=== PATIENT | female | born 1930 | race Caucasian/White ===

== ENCOUNTER 2016-10-10 15:39 | Inpatient (IN) | payer MEDICAID ==
[~2016-10-10] VITALS: Ht 157.5 cm; Wt 61.5 kg
[2016-10-10] MEDS ORDERED: ONDANSETRON 4 MG INJ IV STA (16:05)
[2016-10-10] MEDS ORDERED: KETOROLAC 15 MG INJ IV STA (16:05)
[2016-10-10] MEDS ORDERED: SOD CHLORIDE 0.9% 1,000 ML IV STA (16:05)
[2016-10-10] MEDS ORDERED: GLIP-95 PO (16:32)
[2016-10-10] MEDS ORDERED: METO-448 PO (16:32)
[2016-10-10] MEDS ORDERED: SIMV40TA2 PO (16:33)
[2016-10-10] MEDS ORDERED: BENA40TA41 PO (16:33)
[2016-10-10 16:47] LABS: ADD SCAN DIFF NO
[2016-10-10 16:56] LABS: BASOPHILS % 0.2 % (0.0-2.0); EOSINOPHILS % 0.1 % (0.0-7.0); HEMATOCRIT 39.7 % (37.0-47.0); HEMOGLOBIN 13.1 g/dl (12.0-16.0); LYMPHOCYTES # 1.8 10^3/ul (0.8-2.9); MEAN CORPUSCULAR HEMOGLOBIN 28.7 pg (29.0-33.0); MEAN CORPUSCULAR VOLUME 87.1 fl (82.0-101.0); MONOCYTE # 0.7 10^3/ul (0.3-0.9); MONOCYTES % 8.7 % (0.0-11.0); NEUTROPHIL # 5.8 10^3/ul (1.6-7.5); NEUTROPHILS % 69.8 % (39.0-77.0); PLATELET COUNT 184 10^3/UL (140-415); RED BLOOD COUNT 4.56 10^6/ul (4.20-5.40); RED CELL DISTRIBUTION WIDTH 14.6 % (11.5-14.5); WHITE BLOOD COUNT 8.3 10^3/ul (4.8-10.8)
[2016-10-10 17:09] LABS: INR 0.96; PROTIME 12.8 Sec (12.2-14.2)
--- NOTE | 2016-10-10 17:33 | RADRPT ---
PROCEDURE: XR Chest. CLINICAL INDICATION: Chest pain TECHNIQUE: AP view of the chest was performed. COMPARISON: None FINDINGS: The cardiomediastinal silhouette is within normal limits. The lungs are clear. No signs of pleural f luid or pneumothorax are seen. The osseous structures and soft tissues are unremarkable. IMPRESSION: No evidence for active cardiopulmonary disease. RPTAT: QQ .Shasta Cruz MD, MD Date Time Electronically viewed and signed by .Shasta Cruz MD, on 10/10/2016 17:33 .F/
[2016-10-10 17:50] LABS: ALANINE AMINOTRANSFERASE 20 IU/L (13-69); ALBUMIN 4.3 g/dl (3.3-4.9); ALBUMIN/GLOBULIN RATIO 1.22; ALKALINE PHOSPHATASE 64 IU/L (42-121); ANION GAP 21 (8-16); ASPARTATE AMINO TRANSFERASE 32 IU/L (15-46); BILIRUBIN,INDIRECT 0.2 mg/dl (0-1.1); BILIRUBIN,TOTAL 0.2 mg/dl (0.2-1.3); BLOOD UREA NITROGEN 34 mg/dl (7-20); CALCIUM 8.8 mg/dl (8.4-10.2); CARBON DIOXIDE 24 mmol/L (21-31); CHLORIDE 105 mmol/L (97-110); CREATININE 2.67 mg/dl (0.44-1.00); POTASSIUM 3.5 mmol/L (3.5-5.1); SODIUM 146 mmol/L (135-144); TOTAL PROTEIN 7.8 g/dl (6.1-8.1)
[2016-10-10 17:54] LABS: GLUCOSE 49 mg/dl (70-220)
[2016-10-10 18:08] LABS: TROPONIN-I < 0.012 ng/ml (0.00-0.12)
[2016-10-10] MEDS ORDERED: DEXTROSE 50% 50 ML SYRINGE IV STA (18:17)
--- NOTE | 2016-10-10 18:36 | ERA ---
ER Documentation Chief Complaint Date/Time DATE: 10/10/16 TIME: 18:33 Chief Complaint AP WITH DIARRHEA SINCE TUESDAY HPI 85-year-old woman brought in by family members for 2-3 episodes of diarrhea for the last 3-4 days, her symptoms also began with vomiting which has improved. She has had no blood per rectum, no chest pain or shortness of breath, no loss of consciousness, no recent antibiotic use or recent travel. She has felt weak and dizzy. ROS All systems reviewed and are negative except as per history of present illness. Medications Home Meds Reported Medications Simvastatin* (Zocor*) 40 Mg Tablet, 40 MG PO QHS, #30 TAB 10/10/16 Benazepril Hcl* (Benazepril Hcl*) 40 Mg Tablet, 40 MG PO DAILY, #30 TAB 10/10/16 Metoprolol Tartrate* (Lopressor*) 25 Mg Tab, 25 MG PO DAILY, #60 TAB 10/10/16 Glipizide* (Glipizide*) 10 Mg Tablet, 10 MG PO AC BREAKFAST, TAB 10/10/16 Allergies Allergies: Coded Allergies: No Known Allergy (Unverified , 10/10/16) PMhx/Soc Mild dementia, hypertension, diabetes mellitus, dyslipidemia History of Surgery: Yes (gallbladder) Hx Cardiac Disorders: Yes (htn, high cholestrol ) Hx Miscellaneous Medical Probl: Yes (dm, thyroid do ) Hx Alcohol Use: No Hx Substance Use: No Hx Tobacco Use: No Smoking Status: Never smoker FmHx Family History: No diabetes Physical Exam Vitals Vital Signs Date Time Temp Pulse Resp B/P Pulse Ox O2 Delivery O2 Flow Rate FiO2 10/10/16 18:07 65 23 134/45 98 Room Air 10/10/16 15:42 98.9 91 18 118/55 99 Physical Exam GENERAL: Well-developed, well-nourished, dehydrated elderly woman, afebrile HEENT: Dry mucous membranes, pink conjunctiva, no cervical spine tenderness or step-off deformities, no goiter, no jaundice or icterus, extraocular movements intact without pain. No submandibular induration, and no pharyngeal erythema NEURO: Alert and oriented 2, able to answer simple questions and follow simple commands, no focal deficits or facial asymmetry, eyes open CARDIAC: Regular rate and rhythm, no murmurs rubs or gallops LUNGS: Clear bilaterally no wheezing crackles or stridor ABDOMEN: Protuberant mildly distended abdomen without guarding and no rigidity, minimally tender diffusely, no rebound, no psoas sign no obturator sign. SKIN: Warm and dry to touch, no abrasions, contusions, or hematomas, no lacerations, no ecchymosis, no target lesions, and without ulcers EXTREMITIES: No clubbing cyanosis or edema, calves are bilaterally symmetrical, no Homans sign, no popliteal cord sign. Distal pulses equal and bilateral PSYCH: Normal affect without agitation or irritability Result Diagram: 10/10/16 1630 10/10/16 1718 Results 24 hrs Laboratory Tests Test 10/10/16 16:30 10/10/16 17:18 10/10/16 17:58 10/10/16 18:15 White Blood Count 8.310^3/ul Red Blood Count 4.5610^6/ul Hemoglobin 13.1g/dl Hematocrit 39.7% Mean Corpuscular Volume 87.1fl Mean Corpuscular Hemoglobin 28.7pg Mean Corpuscular Hemoglobin Concent 33.0g/dl Red Cell Distribution Width 14.6% Platelet Count 86626^3/UL Mean Platelet Volume 11.0fl Neutrophils % 69.8% Lymphocytes % 21.0% Monocytes % 8.7% Eosinophils % 0.1% Basophils % 0.2% Nucleated Red Blood Cells % 0.0/100WBC Neutrophils # 5.810^3/ul Lymphocytes # 1.810^3/ul Monocytes # 0.710^3/ul Eosinophils # 0.010^3/ul Basophils # 0.010^3/ul Nucleated Red Blood Cells # 0.010^3/ul Prothrombin Time 12.8Sec Prothrombin Time Ratio 1.0 INR International Normalized Ratio 0.96 Sodium Level 146mmol/L Potassium Level 3.5mmol/L Chloride Level 105mmol/L Carbon Dioxide Level 24mmol/L Anion Gap 21 Blood Urea Nitrogen 34mg/dl Creatinine 2.67mg/dl Glucose Level 49mg/dl Calcium Level 8.8mg/dl Total Bilirubin 0.2mg/dl Direct Bilirubin 0.00mg/dl Indirect Bilirubin 0.2mg/dl Aspartate Amino Transf (AST/SGOT) 32IU/L Alanine Aminotransferase (ALT/SGPT) 20IU/L Alkaline Phosphatase 64IU/L Troponin I < 0.012ng/ml Total Protein 7.8g/dl Albumin 4.3g/dl Globulin 3.50g/dl Albumin/Globulin Ratio 1.22 Lipase 109U/L Bedside Glucose 47mg/dL 44mg/dL Current Medications Medications (Trade) Dose Ordered Sig/Kerri Route PRN Reason Start Time Stop Time Status Last Admin Dose Admin Sodium Chloride (NS) 1,000 ml @ 1,000 mls/hr Q1H STAT IV 10/10/16 16:05 10/10/16 22:15 DC 10/10/16 16:05 Ondansetron HCl (Zofran Inj) 4 mg ONCE STAT IV 10/10/16 16:05 10/10/16 16:07 DC 10/10/16 16:05 Ketorolac Tromethamine (Toradol) 15 mg ONCE STAT IV 10/10/16 16:05 10/10/16 16:07 DC 10/10/16 16:05 Dextrose (D50w Syringe) 50 ml ONCE STAT IV 10/10/16 18:17 10/10/16 18:20 DC 10/10/16 18:22 Procedures/MDM IV line was established patient was placed on soil fertility extension specialist rhythm strip revealed a sinus rhythm at about 80 bpm with upright P and T waves. Patient was afebrile. EKG performed, read by me: 82 bpm, normal sinus rhythm, normal axis, no acute ST segment changes, narrow QRS complex, with good R-wave progression in precordial leads. Chest X-ray 1V Interpreted by me: Soft Tissue: No acute abnormalities Bones: No acute abnormalities Mediastinum/Cardiac Silhouette/Lungs: No acute abnormalities CT scan of the abdomen and pelvis was performed that was mild acute colitis noted, no other infectious or inflammatory pathology noted. Please refer to radiologist dictation for full report. I administered 2 L normal saline intravenously for dehydration, Toradol 15 mg IV for pain, Zofran 4 mg IV. Patient was found to be hypoglycemic here in the emergency department show we administered juice and dextrose 25 g IV. CBC was unremarkable, electrolytes revealed dehydration and kidney injury with a BUN/creatinine of 34/2.7, liver function tests were normal, troponin was negative. Patient will be admitted to [facility] for continued IV hydration. Departure Diagnosis: Primary Impression: Dehydration Additional Impressions: Diarrhea Qualified Code: A09 - Diarrhea of infectious origin Abdominal pain Qualified Code: R10.84 - Generalized abdominal pain Acute kidney injury Hypoglycemia Condition: Fair LON ABDULLAHI MD Oct 10, 2016 18:36
--- NOTE | 2016-10-10 18:36 | RADRPT ---
PROCEDURE: CT abdomen and pelvis without contrast. CLINICAL INDICATION: Abdominal pain and diarrhea for 2 days TECHNIQUE: CT scan of the abdomen and pelvis without contrast was performed. Sagittal and coronal reformatted images were obtained from the axial source images. CTDI = 10.86 mGy; DLP = 584.95 mGy-c m COMPARISON: None available. FINDINGS: Visualized lower thorax: The lung bases are clear. There is no evidence for pleural effusion. Prom inent pericardial fat deposition is incidentally noted Liver, gallbladder, pancreas and spleen: The liver is normal and size, contour and attenuation. Th ere is no evidence for a liver mass or ductal dilatation. Cholecystectomy clips are present. No co mmon bile duct abnormality is demonstrated. The pancreas is unremarkable. The spleen is normal in size. Adrenal glands and genitourinary system: The adrenal glands are normal bilaterally. Bilateral renal cortex thinning is present likely medical renal disease with bilateral renal atrophy the length of each kidney approximately 8 cm. There is no evidence of renal calculus or hydronephrosis. The uret ers are unremarkable. The urinary bladder is contracted and difficult to evaluate. Uterine atrophy is noted with vascular calcifications in the myometrium. No ovarian or adnexal masses are present. Gastrointestinal system: A small sliding hiatal hernia is noted the remainder of the stomach is flu id-filled and without wall thickening. The small bowel is normal in caliber with no ileus, obstruct ion or wall thickening. The appendix and surrounding fat are within the limits of normal. Liquid s tool is seen throughout the majority of the colon. The colonic wall is top normal in thickness equi vocal for colitis without stranding of the pericolonic fat. There is no pneumatosis or extraluminal gas. Peritoneum, retroperitoneum, lymph nodes and vessels: The abdominal aorta is normal in caliber. The re is moderate to severe aortic and iliac system atherosclerotic calcification. The inferior vena c radha is unremarkable. There is no evidence for adenopathy or mass. There is no ascites. No pneumope ritoneum is present Osseous structures and musculoskeletal findings: There is no fracture, lytic or blastic lesion. Ge neralized demineralization and moderate spondylosis of the thoracolumbar spine is seen. No muscular abnormality or soft tissue pathology is present. RPTAT:HJJR IMPRESSION: 1. Liquid stool is visualized throughout and normal caliber colon with top normal colonic wall thick ness equivocal for mild diffuse colitis likely related to infectious or inflammatory etiologies, no stranding of the adjacent pericolonic fat is present. 2. Small sliding hiatal hernia. 3. Changes of prior cholecystectomy. 4. Bilateral renal cortex thinning and mild renal atrophy likely medical renal disease. 5. Diffuse atherosclerotic calcification of the aorta and iliac system. Imtiaz Vásquez Physician Date Time Electronically viewed and signed by Imtiaz Vásquez Physician on 10/10/2016 18:36 JR/
[2016-10-10 20:43] VITALS: TEMP 98.2
[2016-10-10 21:45] VITALS: BP 150/65; PULSE 80; RESP 17; Ht 157.5 cm; Wt 61.5 kg
[2016-10-10] MEDS ORDERED: SOD CHLORIDE 0.9% 1,000 ML IV SCH (22:00)
[2016-10-10] MEDS: DEXTROSE 5%-0.9% NACL 1,000 ML IV SCH (22:26)
[2016-10-10] MEDS ORDERED: DEXTROSE 50% 50 ML SYRINGE IV ONE (22:30)
[2016-10-10] MEDS ORDERED: BISACODYL (EC) 5 MG TAB PO PRN (22:30)
[2016-10-10] MEDS ORDERED: NACL 0.9% 3 ML SYG IV SCH (22:30)
[2016-10-10] MEDS ORDERED: ACETAMINOPHEN 325 MG TAB PO PRN (22:30)
[2016-10-10] MEDS ORDERED: DOCUSATE SODIUM 100 MG CAP PO PRN (22:30)
[2016-10-10] MEDS ORDERED: FAMOTIDINE 20 MG INJ IV SCH (22:30)
[2016-10-10] MEDS ORDERED: ONDANSETRON 4 MG INJ IV PRN (22:30)
[2016-10-10] MEDS ORDERED: DEXTROSE 50% 50 ML SYRINGE IV PRN ×2 (23:00)
[2016-10-10] MEDS ORDERED: GLUCAGON 1 MG INJ IM PRN (23:00)
[2016-10-10] MEDS ORDERED: GLUCOSE GEL 15 GRAM TUBE PO PRN ×2 (23:00)
[2016-10-10] MEDS ORDERED: GLUCOSE GEL 15 GRAM TUBE BUCCAL PRN (23:00)
[2016-10-11] MEDS: INSULIN ASPART [NOVOLOG] 3 ML PEN SC SCH ×3 (01:00→09:00)
[2016-10-11 02:00] VITALS: BP 132/55; PULSE 63; RESP 20
[2016-10-11] MEDS ORDERED: ACCU-CHEK XX SCH ×2 (02:00→02:30)
[2016-10-11 05:05] LABS: ADD SCAN DIFF NO
[2016-10-11 05:12] LABS: BASOPHILS % 0.3 % (0.0-2.0); EOSINOPHILS # 0.1 10^3/ul (0.0-0.5); HEMOGLOBIN 11.3 g/dl (12.0-16.0); LYMPHOCYTES # 1.9 10^3/ul (0.8-2.9); LYMPHOCYTES % 32.1 % (15.0-51.0); MEAN CORPUSCULAR HEMOGLOBIN 27.9 pg (29.0-33.0); MEAN CORPUSCULAR HGB CONC 31.4 g/dl (32.0-37.0); MEAN CORPUSCULAR VOLUME 88.9 fl (82.0-101.0); MEAN PLATELET VOLUME 10.8 fl (7.4-10.4); MONOCYTE # 0.6 10^3/ul (0.3-0.9); MONOCYTES % 9.7 % (0.0-11.0); NEUTROPHIL # 3.3 10^3/ul (1.6-7.5); NEUTROPHILS % 56.7 % (39.0-77.0); PLATELET COUNT 149 10^3/UL (140-415); RED BLOOD COUNT 4.05 10^6/ul (4.20-5.40); RED CELL DISTRIBUTION WIDTH 14.4 % (11.5-14.5); WHITE BLOOD COUNT 5.9 10^3/ul (4.8-10.8)
[2016-10-11 05:38] LABS: ALBUMIN 3.3 g/dl (3.3-4.9); ALBUMIN/GLOBULIN RATIO 1.13; BILIRUBIN,INDIRECT 0.1 mg/dl (0-1.1); BILIRUBIN,TOTAL 0.1 mg/dl (0.2-1.3); CALCIUM 7.5 mg/dl (8.4-10.2); CREATININE 1.99 mg/dl (0.44-1.00); MAGNESIUM 1.8 mg/dl (1.7-2.5); POTASSIUM 3.2 mmol/L (3.5-5.1); TOTAL PROTEIN 6.2 g/dl (6.1-8.1)
--- NOTE | 2016-10-11 05:41 | HP ---
Date/Time of Note Date/Time of Note DATE: 10/11/16 TIME: 05:33 Assessment/Plan VTE Prophylaxis VTE Prophylaxis Intervention: SCD's Lines/Catheters IV Catheter Type (from [facility]): Peripheral IV Assessment/Plan Chief Complaint/Hosp Course This is a 85-year-old female being admitted to the [facility] floor for: Assessments: #1 Suspected acute gastroenteritis #2 suspected acute on chronic kidney injury #3 hypoglycemia #4 diabetes mellitus #5 hypertension #6 possible thyroid disorder Plan: At this time this possibly appears to be gastroenteritis secondary to likely a foodborne illness. At the current time patient is afebrile and white blood cell count remains within normal values. Will give the patient IV fluid hydration. We will check stool studies. Patient also is dealing with hypoglycemia. At the current time will put patient on IV fluids with dextrose for hydration. Will consult nephrology regarding patient's elevated creatinine. There is no previous history of her creatinine on her hospital records. Will order bilateral renal ultrasound. And will order urine osmolality osmolality and osmolality and urine sodium. Will hold MARGAUX inhibitor at this time. And will hold diabetes medications. Will put patient on insulin sliding scale. Check TSH. Further treatment strategy will be implemented as per the clinical course Problems: HPI/ROS Admit Date/Time Admit Date/Time Oct 10, 2016 at 18:33 Hx of Present Illness Chief complaint: Diarrhea 3-4 days This is a 85-year-old woman brought in by family members for 2-3 episodes of diarrhea for the last 3-4 days, her symptoms also began with vomiting which has improved. She has had no blood per rectum, no chest pain or shortness of breath , no loss of consciousness, no recent antibiotic use or recent travel. She has felt weak and dizzy. She does state that a few days ago her relative brought tacos from an outside restaurant and she did state that he did not taste right to her. Allergies: NKDA Medications: See JUN CRISTÓBAL Const: As per HPI Eyes : No pain discharge or redness or change in visual acuity ENT: No pain, sore throat, congestion, congestion, dysphagia or discharge Respiratory: No shortness of breath, cough, sputum, wheezing, or pleuritic pain Cardiovascular: No chest pain, palpitation, PND, or edema GI : As per Genitourinary: No dysuria, hematuria, flank pain , discharge or CVA tenderness Musculoskeletal: No joint pain, back pain, neck pain, restricted range of motion in neck or joints Skin: No rash, bruising or hives Neuro: No headache, dizziness, syncope, seizure, focal weakness Endocrine: No polyuria, polydipsia, temperature intolerance Psych: No hallucination, depression, anxiety or suicidal ideation PMH/Family/Social Past Medical History Mild dementia, hypertension, diabetes mellitus, dyslipidemia, questionable thyroid disorder Past Surgical History Past Surgical Hx: no surgical history Family History Significant Family History: no pertinent family hx Social History Alcohol Use: none Smoking Status: Never smoker Drug Use: none Exam/Review of Systems Vital Signs Vitals Vital Signs Date Time Temp Pulse Resp B/P Pulse Ox O2 Delivery O2 Flow Rate FiO2 10/11/16 02:00 98.3 63 20 132/55 100 Room Air Intake and Output 10/10/16 10/10/16 10/11/16 15:00 23:00 07:00 Intake Total 767.5 ml Balance 767.5 ml Exam Exam General: Patient is a pleasant 85-year-old female laying in bed in no acute distress HEENT: Atraumatic, normocephalic. The pupils are equal, round and reactive. Extraocular motor are intact Neck: Supple with full range of motion. No rigidity or meningismus Chest: Nontender Lungs: Clear to auscultation bilaterally no crackles rales or wheezing Heart: Normal S1-S2, Regular rhythm and rate. No murmur, S3, or S4 Abdomen: Soft, mild tenderness to palpation of the lower abdomen, nondistended normal bowel sounds Extremities: Normal to inspection, no edema no cyanosis Neurologic: Normal mental status, speech normal, cranial nerves II through XII are intact, motor and sensory are intact, no focal weakness Additional Comments PROCEDURE: CT abdomen and pelvis without contrast. CLINICAL INDICATION: Abdominal pain and diarrhea for 2 days TECHNIQUE: CT scan of the abdomen and pelvis without contrast was performed. Sagittal and coronal reformatted images were obtained from the axial source images. CTDI = 10.86 mGy; DLP = 584.95 mGy-cm COMPARISON: None available. FINDINGS: Visualized lower thorax: The lung bases are clear. There is no evidence for pleural effusion. Prominent pericardial fat deposition is incidentally noted Liver, gallbladder, pancreas and spleen: The liver is normal and size, contour and attenuation. There is no evidence for a liver mass or ductal dilatation. Cholecystectomy clips are present. No common bile duct abnormality is demonstrated. The pancreas is unremarkable. The spleen is normal in size. Adrenal glands and genitourinary system: The adrenal glands are normal bilaterally. Bilateral renal cortex thinning is present likely medical renal disease with bilateral renal atrophy the length of each kidney approximately 8 cm. There is no evidence of renal calculus or hydronephrosis. The ureters are unremarkable. The urinary bladder is contracted and difficult to evaluate. Uterine atrophy is noted with vascular calcifications in the myometrium. No ovarian or adnexal masses are present. Gastrointestinal system: A small sliding hiatal hernia is noted the remainder of the stomach is fluid-filled and without wall thickening. The small bowel is normal in caliber with no ileus, obstruction or wall thickening. The appendix and surrounding fat are within the limits of normal. Liquid stool is seen throughout the majority of the colon. The colonic wall is top normal in thickness equivocal for colitis without stranding of the pericolonic fat. There is no pneumatosis or extraluminal gas. Peritoneum, retroperitoneum, lymph nodes and vessels: The abdominal aorta is normal in caliber. There is moderate to severe aortic and iliac system atherosclerotic calcification. The inferior vena cava is unremarkable. There is no evidence for adenopathy or mass. There is no ascites. No pneumoperitoneum is present Osseous structures and musculoskeletal findings: There is no fracture, lytic or blastic lesion. Generalized demineralization and moderate spondylosis of the thoracolumbar spine is seen. No muscular abnormality or soft tissue pathology is present. RPTAT:HJJR IMPRESSION: 1. Liquid stool is visualized throughout and normal caliber colon with top normal colonic wall thickness equivocal for mild diffuse colitis likely related to infectious or inflammatory etiologies, no stranding of the adjacent pericolonic fat is present. 2. Small sliding hiatal hernia. 3. Changes of prior cholecystectomy. 4. Bilateral renal cortex thinning and mild renal atrophy likely medical renal disease. 5. Diffuse atherosclerotic calcification of the aorta and iliac system. Physician Aislinn Date Time Electronically viewed and signed by Physician Aislinn on 10/10/2016 18:36 PROCEDURE: XR Chest. CLINICAL INDICATION: Chest pain TECHNIQUE: AP view of the chest was performed. COMPARISON: None FINDINGS: The cardiomediastinal silhouette is within normal limits. The lungs are clear. No signs of pleural fluid or pneumothorax are seen. The osseous structures and soft tissues are unremarkable. IMPRESSION: No evidence for active cardiopulmonary disease. RPTAT: QQ .Shasta Cruz MD, MD Date Time Electronically viewed and signed by .Shasta Cruz MD, on 10/10/2016 17:33 Labs Result Diagram: 10/11/16 0425 10/10/16 1718 Medications Medications Current Medications Dextrose/Sodium Chloride (D5-NS) 1,000 ml @ 75 mls/hr [id number] IV Last administered on 10/10/16 22:26; Admin Dose 75 MLS/HR; Start 10/10/16 at 22:30 Ondansetron HCl (Zofran Inj) 4 mg Q6H PRN IV NAUSEA AND/OR VOMITING; Start 10/10 at 22:30 Acetaminophen (Tylenol Tab) 650 mg Q6H PRN PO PAIN LEVEL 1-3 OR FEVER; Start at 22:30 Docusate Sodium (Colace) 100 mg Q12H PRN PO CONSTIPATION; Start 10/10/16 at 22: 30 Bisacodyl (Dulcolax) 5 mg DAILY PRN PO CONSTIPATION; Start 10/10/16 at 22:30 Famotidine (Pepcid Iv) 20 mg Q24H IV Last administered on 10/10/16 22:45; Admin Dose 20 MG; Start 10/10/16 at 22:30 Insulin Aspart (Novolog Insulin Pen) NOVOLOG *MILD* ALGORI... Q4 SC ; Start 01/18 at 01:00 Atorvastatin Calcium (Lipitor) 20 mg DAILY@21 PO ; Start 10/11/16 at 21:00 Miscellaneous Information 1 ea NOTE XX ; Start 10/10/16 at 23:00 Glucose (Glutose) 15 gm Q15M PRN PO DECREASED GLUCOSE; Start 10/10/16 at 23:00 Glucose (Glutose) 22.5 gm Q15M PRN PO DECREASED GLUCOSE; Start 10/10/16 at 23:00 Dextrose (D50w Syringe) 25 ml Q15M PRN IV DECREASED GLUCOSE; Start 10/10/16 at 23:00 Dextrose (D50w Syringe) 50 ml Q15M PRN IV DECREASED GLUCOSE; Start 10/10/16 at 23:00 Glucagon (Glucagen) 1 mg Q15M PRN IM DECREASED GLUCOSE; Start 10/10/16 at 23:00 Glucose (Glutose) 15 gm Q15M PRN BUCCAL DECREASED GLUCOSE; Start 10/10/16 at 23: 00 JAMIA DUMONT Oct 11, 2016 05:41
[2016-10-11 06:02] LABS: THYROID STIMULATING HORMONE 0.298 MIU/L (0.465-4.680)
--- NOTE | 2016-10-11 07:52 | RADRPT ---
PROCEDURE: Renal US. CLINICAL INDICATION: Renal dysfunction. TECHNIQUE: Multiple sonographic images of the kidneys and urinary bladder were obtained. The imag es were reviewed on a PACS workstation. COMPARISON: CT scan of the abdomen and pelvis dated 10/10/2016. FINDINGS: The right kidney measures 9.2 cm. The left kidney measures 9.1 cm. There is no renal mass. There is no hydronephrosis. There is no renal calculus. Renal parenchymal thickness is normal bilaterally. Both kidneys are hyperechoic consistent with medical renal disease. The perirenal regions are normal with no fluid collection or mass. The urinary bladder is empty. IMPRESSION: 1. Bilateral hyperechoic kidneys consistent with medical renal disease. 2. No hydronephrosis. 3. Empty urinary bladder. 4. Otherwise normal renal ultrasound. RPTAT: QQ .Joss Sutherland MD, Date Time Electronically viewed and signed by .Joss Sutherland MD, on 10/11/2016 07:52 .R/
[2016-10-11 08:24] VITALS: BP 125/60; RESP 19
[2016-10-11] MEDS ORDERED: POTASSIUM CHLORIDE (SR) 20 MEQ TAB PO STA (09:55)
[2016-10-11] MEDS ORDERED: hydrALAzine 20 MG INJ IV PRN (10:00)
[2016-10-11 10:21] LABS: ADD UMIC YES; UR ASCORBIC ACID NEGATIVE (NEGATIVE); UR BACTERIA FEW /HPF (NONE SEEN); UR BILIRUBIN (Dip) NEGATIVE (NEGATIVE); UR BLOOD (Dip) 1+ mg/dL (NEGATIVE); UR CLARITY CLOUDY (CLEAR); UR COLOR YELLOW (YELLOW); UR GLUCOSE (Dip) 1+ mg/dL (NEGATIVE); UR KETONES (Dip) NEGATIVE (NEGATIVE); UR LEUKOCYTE ESTERASE (Dip) 2+ Leu/ul (NEGATIVE); UR NITRITE (Dip) NEGATIVE (NEGATIVE); UR RBC 4 /HPF (0-5); UR SPECIFIC GRAVITY (Dip) 1.017 (1.003-1.030); UR SQUAMOUS EPITHELIAL CELL FEW /HPF (FEW); UR TOTAL PROTEIN (Dip) NEGATIVE (NEGATIVE); UR UROBILINOGEN (Dip) NEGATIVE (NEGATIVE)
[2016-10-11] MEDS: Insulin NOVOLOG SS MILD Algorithm (SS with meals and bedtime) SC SCH ×3 (11:30→20:17)
[2016-10-11] MEDS ORDERED: INSULIN ASPART [NOVOLOG] 3 ML PEN SC SCH (11:30)
[2016-10-11] MEDS: DEXTROSE 5%-0.9% NACL 1,000 ML IV SCH (12:18)
[2016-10-11 15:05] VITALS: BP 140/62; RESP 20
[2016-10-11 15:44] LABS: CHOL/HDL RATIO 6.2 RATIO
[2016-10-11 17:59] LABS: ADD UMIC YES; UR ASCORBIC ACID NEGATIVE (NEGATIVE); UR BACTERIA FEW /HPF (NONE SEEN); UR BILIRUBIN (Dip) NEGATIVE (NEGATIVE); UR BLOOD (Dip) 1+ mg/dL (NEGATIVE); UR CLARITY SLIGHTLY CLOUDY (CLEAR); UR COLOR STRAW (YELLOW); UR GLUCOSE (Dip) NEGATIVE (NEGATIVE); UR KETONES (Dip) NEGATIVE (NEGATIVE); UR LEUKOCYTE ESTERASE (Dip) 1+ Leu/ul (NEGATIVE); UR NITRITE (Dip) NEGATIVE (NEGATIVE); UR RBC 1 /HPF (0-5); UR SPECIFIC GRAVITY (Dip) 1.005 (1.003-1.030); UR SQUAMOUS EPITHELIAL CELL FEW /HPF (FEW); UR TOTAL PROTEIN (Dip) NEGATIVE (NEGATIVE); UR UROBILINOGEN (Dip) NEGATIVE (NEGATIVE)
[2016-10-11] MEDS: ATORVASTATIN 20 MG TAB PO SCH (20:17)
[2016-10-11] MEDS: FAMOTIDINE 20 MG TAB PO SCH (20:17)
[2016-10-11] MEDS ORDERED: NON-FORMULARY/PATIENT OWN MED (Simvastatin* (Zocor*) 40 MG) PO SCH (21:00)
[2016-10-11 22:24] VITALS: BP 134/87; RESP 19
[2016-10-12 02:00] VITALS: BP 142/86; RESP 18
[2016-10-12] MEDS: ACCUCHECK AT 2AM (Patients on SS coverage) XX SCH (02:00)
[2016-10-12] MEDS: DEXTROSE 5%-0.9% NACL 1,000 ML IV SCH ×2 (04:06→12:35)
[2016-10-12 06:30] LABS: ADD SCAN DIFF NO
[2016-10-12 06:48] LABS: BASOPHILS % 0.3 % (0.0-2.0); EOSINOPHILS # 0.1 10^3/ul (0.0-0.5); EOSINOPHILS % 0.9 % (0.0-7.0); HEMATOCRIT 37.3 % (37.0-47.0); HEMOGLOBIN 11.9 g/dl (12.0-16.0); LYMPHOCYTES % 31.8 % (15.0-51.0); MEAN CORPUSCULAR HEMOGLOBIN 28.5 pg (29.0-33.0); MEAN CORPUSCULAR HGB CONC 31.9 g/dl (32.0-37.0); MEAN CORPUSCULAR VOLUME 89.4 fl (82.0-101.0); MEAN PLATELET VOLUME 11.8 fl (7.4-10.4); MONOCYTE # 0.5 10^3/ul (0.3-0.9); MONOCYTES % 7.4 % (0.0-11.0); NEUTROPHIL # 3.8 10^3/ul (1.6-7.5); NEUTROPHILS % 59.3 % (39.0-77.0); PLATELET COUNT 160 10^3/UL (140-415); RED BLOOD COUNT 4.17 10^6/ul (4.20-5.40); RED CELL DISTRIBUTION WIDTH 14.6 % (11.5-14.5); WHITE BLOOD COUNT 6.4 10^3/ul (4.8-10.8)
[2016-10-12 07:03] LABS: MAGNESIUM 1.8 mg/dl (1.7-2.5); PHOSPHORUS 2.6 mg/dl (2.5-4.9)
[2016-10-12 07:29] LABS: CALCIUM 8.3 mg/dl (8.4-10.2); CREATININE 1.37 mg/dl (0.44-1.00); POTASSIUM 4.3 mmol/L (3.5-5.1)
[2016-10-12] MEDS: Insulin NOVOLOG SS MILD Algorithm (SS with meals and bedtime) SC SCH ×4 (07:30→20:06)
[2016-10-12 08:12] VITALS: BP 149/62; RESP 18
[2016-10-12] MEDS: METOPROLOL 25 MG TAB PO SCH (09:45)
--- NOTE | 2016-10-12 13:21 | PN ---
Date/Time of Note Date/Time of Note DATE: 10/12/16 TIME: 13:17 Assessment/Plan Lines/Catheters IV Catheter Type (from Nrs): Peripheral IV Urinary Cath still in place: No Assessment/Plan Chief Complaint/Hosp Course 1. non-oliguric gila/ckd -etiology gila likely hemodynamics -u/a, lytes reviewed -renal function improving with ivf -will d/c ns -monitor 2. ckd -renal us c/w chronic dz -continue to treat gila as above 3. 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 gastroenteritis -improving 6. dm -cont med/miladys 7 htn -cont med/miladys Problems: Subjective 24 Hr Interval Summary Free Text/Dictation -pt seen and examined -no events overnight Exam/Review of Systems Vital Signs Vitals Vital Signs Date Time Temp Pulse Resp B/P Pulse Ox O2 Delivery O2 Flow Rate FiO2 10/12/16 08:12 97.3 68 18 149/62 100 10/11/16 02:00 Room Air Intake and Output 10/11/16 10/11/16 10/12/16 15:00 23:00 07:00 Intake Total 512.5 ml 1660 ml 990 ml Output Total 750 ml Balance 512.5 ml 1660 ml 240 ml Exam HEENT: Atraumatic, normocephalic. The pupils are equal, round and reactive. Extraocular motor are intact Neck: Supple with full range of motion. No rigidity or meningismus Chest: Nontender Lungs: Clear to auscultation bilaterally no crackles rales or wheezing Heart: Normal S1-S2, Regular rhythm and rate. No murmur, S3, or S4 Abdomen: Soft, mild tenderness to palpation of the lower abdomen, nondistended normal bowel sounds Extremities: Normal to inspection, no edema no cyanosis Neurologic: Normal mental status, speech normal, cranial nerves II through XII are intact, motor and sensory are intact, no focal weakness Results Result Diagram: 10/12/168 10/12/16427 Results 24 hrs Laboratory Tests Test 10/11/16 15:20 10/11/16 17:00 10/11/16 17:32 10/11/16 20:16 Triglycerides Level 219 H Cholesterol Level 175 LDL Cholesterol, Calculated 103 HDL Cholesterol 28 L Cholesterol/HDL Ratio 6.2 Free Thyroxine 1.15 Urine Color STRAW Urine Clarity SLIGHTLY CLOUDY A Urine pH 5.0 Urine Specific [place] 1.005 Urine Ketones NEGATIVE Urine Nitrite NEGATIVE Urine Bilirubin NEGATIVE Urine Urobilinogen NEGATIVE Urine Leukocyte Esterase 1+ H Urine Microscopic RBC 1 Urine Microscopic WBC 3 Urine Squamous Epithelial Cells FEW Urine Bacteria FEW A Urine Hemoglobin 1+ H Urine Glucose NEGATIVE Urine Total Protein NEGATIVE Bedside Glucose 77 85 Test 10/12/16 04:28 10/12/16 07:55 10/12/16 12:16 White Blood Count 6.4 Red Blood Count 4.17 L Hemoglobin 11.9 L Hematocrit 37.3 Mean Corpuscular Volume 89.4 Mean Corpuscular Hemoglobin 28.5 L Mean Corpuscular Hemoglobin Concent 31.9 L Red Cell Distribution Width 14.6 H Platelet Count 160 Mean Platelet Volume 11.8 H Neutrophils % 59.3 Lymphocytes % 31.8 Monocytes % 7.4 Eosinophils % 0.9 Basophils % 0.3 Nucleated Red Blood Cells % 0.0 Neutrophils # 3.8 Lymphocytes # 2.0 Monocytes # 0.5 Eosinophils # 0.1 Basophils # 0.0 Nucleated Red Blood Cells # 0.0 Sodium Level 134 L Potassium Level 4.3 Chloride Level 108 Carbon Dioxide Level 23 Anion Gap 7 #L Blood Urea Nitrogen 25 H Creatinine 1.37 H Glucose Level 98 Calcium Level 8.3 L Phosphorus Level 2.6 Magnesium Level 1.8 Bedside Glucose 87 124 Medications Medications Current Medications Ondansetron HCl (Zofran Inj) 4 mg Q6H PRN IV NAUSEA AND/OR VOMITING; Start 10/10 at 22:30 Acetaminophen (Tylenol Tab) 650 mg Q6H PRN PO PAIN LEVEL 1-3 OR FEVER; Start at 22:30 Docusate Sodium (Colace) 100 mg Q12H PRN PO CONSTIPATION; Start 10/10/16 at 22: 30 Bisacodyl (Dulcolax) 5 mg DAILY PRN PO CONSTIPATION; Start 10/10/16 at 22:30 Atorvastatin Calcium (Lipitor) 20 mg DAILY@21 PO Last administered on t 20:17; Admin Dose 20 MG; Start 10/11/16 at 21:00 Miscellaneous Information 1 ea NOTE XX ; Start 10/10/16 at 23:00 Glucose (Glutose) 15 gm Q15M PRN PO DECREASED GLUCOSE; Start 10/10/16 at 23:00 Glucose (Glutose) 22.5 gm Q15M PRN PO DECREASED GLUCOSE; Start 10/10/16 at 23:00 Dextrose (D50w Syringe) 25 ml Q15M PRN IV DECREASED GLUCOSE; Start 10/10/16 at 23:00 Dextrose (D50w Syringe) 50 ml Q15M PRN IV DECREASED GLUCOSE; Start 10/10/16 at 23:00 Glucagon (Glucagen) 1 mg Q15M PRN IM DECREASED GLUCOSE; Start 10/10/16 at 23:00 Glucose (Glutose) 15 gm Q15M PRN BUCCAL DECREASED GLUCOSE; Start 10/10/16 at 23: 00 Hydralazine HCl (Apresoline) 10 mg Q6H PRN IV SBP>160; Start 10/11/16 at 10:00 Metoprolol Tartrate (Lopressor) 25 mg DAILY PO Last administered on 10/12/16 09:45; Admin Dose 25 MG; Start 10/12/16 at 09:00 Diagnostic Test (Pha) (Accu-Chek) 1 ea 02 XX ; Start 10/12/16 at 02:00 Famotidine (Pepcid) 20 mg Q24H PO Last administered on 10/11/16 20:17; Admin Dose 20 MG; Start 10/11/16 at 21:00 YVON DUNN DO Oct 12, 2016 13:21
[2016-10-12 14:10] LABS: MICROALBUMIN 1.5 mg/dL
--- NOTE | 2016-10-12 14:45 | PN ---
Date/Time of Note Date/Time of Note DATE: 10/12/16 TIME: 14:43 Assessment/Plan VTE Prophylaxis VTE Prophylaxis Intervention: SCD's Lines/Catheters IV [facility] Type (from [facility]): Peripheral IV Urinary Cath still in place: No Assessment/Plan Chief Complaint/Hosp Course 1. Acute nonoliguric kidney injury. Etiology unclear. Continue to monitor the BUN and creatinine closely. 2. Urinary tract infection. Urine culture positive for polymicrobial's. Start empiric antibiotics. Await final cultures. 3. Possible underlying colitis. Stool studies pending. Diet as tolerated. Obtain gastroenterology consult. 4. Type 2 diabetes mellitus. Hemoglobin A1c 7.3. Continue sliding scale insulin. 5. Dyslipidemia. Continue statins. 6. Essential hypertension. Continue antihypertensives. 7. Fluids, electrolytes, and nutrition. Carbohydrate controlled diet. IV fluid management as per nephrology. 8. DVT prophylaxis. Bilateral sequential compression devices. 9. Gastrointestinal prophylaxis with histamine 2 receptor blockers. 10. Plan. Continue empiric antibiotics. Await final urine cultures. Obtain gastroenterology consult. Case discussed with Dr. Morrison. Problems: Subjective 24 Hr Interval Summary Free Text/Dictation Denies any diarrhea. Exam/Review of Systems Vital Signs Vitals Vital Signs Date Time Temp Pulse Resp B/P Pulse Ox O2 Delivery O2 Flow Rate FiO2 10/12/16 08:12 97.3 68 18 149/62 100 10/11/16 02:00 Room Air Intake and Output 10/11/16 10/11/16 10/12/16 15:00 23:00 07:00 Intake Total 512.5 ml 1660 ml 990 ml Output Total 750 ml Balance 512.5 ml 1660 ml 240 ml Exam General: Adequately build 85 year-old female lying in bed in no apparent distress. HEENT: Normocephalic, atraumatic. Eyes: Anicteric sclerae, conjunctivae clear. ENT: Nasal septum midline, oral mucosa moist. Neck supple, no JVD noticed. Respiratory: Bilaterally clear breath sounds. No use of accessory muscles of respiration. No adventitious breath sounds. Cardiovascular: S1, S2 heard. No murmurs or gallops. Abdomen: Soft, nontender, and nondistended. Bowel sounds positive in all 4 quadrants. Genitourinary: Deferred. Extremities: No cyanosis, no clubbing, no edema. Peripheral pulses palpable. Neurologic: Cranial nerves II through XII grossly intact. The patient is awake, alert, and oriented. Skin: Normal skin turgor. No skin rashes. Results Result Diagram: 10/12/16 0428 10/12/16 0428 Results 24 hrs Laboratory Tests Test 10/11/16 15:20 10/11/16 17:00 10/11/16 17:32 10/11/16 20:16 Triglycerides Level 219 H Cholesterol Level 175 LDL Cholesterol, Calculated 103 HDL Cholesterol 28 L Cholesterol/HDL Ratio 6.2 Free Thyroxine 1.15 Urine Color STRAW Urine Clarity SLIGHTLY CLOUDY A Urine pH 5.0 Urine Specific [place] 1.005 Urine Ketones NEGATIVE Urine Nitrite NEGATIVE Urine Bilirubin NEGATIVE Urine Urobilinogen NEGATIVE Urine Leukocyte Esterase 1+ H Urine Microscopic RBC 1 Urine Microscopic WBC 3 Urine Squamous Epithelial Cells FEW Urine Bacteria FEW A Urine Hemoglobin 1+ H Urine Glucose NEGATIVE Urine Total Protein NEGATIVE Bedside Glucose 77 85 Test 10/12/16 04:28 10/12/16 07:55 10/12/16 12:16 White Blood Count 6.4 Red Blood Count 4.17 L Hemoglobin 11.9 L Hematocrit 37.3 Mean Corpuscular Volume 89.4 Mean Corpuscular Hemoglobin 28.5 L Mean Corpuscular Hemoglobin Concent 31.9 L Red Cell Distribution Width 14.6 H Platelet Count 160 Mean Platelet Volume 11.8 H Neutrophils % 59.3 Lymphocytes % 31.8 Monocytes % 7.4 Eosinophils % 0.9 Basophils % 0.3 Nucleated Red Blood Cells % 0.0 Neutrophils # 3.8 Lymphocytes # 2.0 Monocytes # 0.5 Eosinophils # 0.1 Basophils # 0.0 Nucleated Red Blood Cells # 0.0 Sodium Level 134 L Potassium Level 4.3 Chloride Level 108 Carbon Dioxide Level 23 Anion Gap 7 #L Blood Urea Nitrogen 25 H Creatinine 1.37 H Glucose Level 98 Calcium Level 8.3 L Phosphorus Level 2.6 Magnesium Level 1.8 Bedside Glucose 87 124 Medications Medications Current Medications Ondansetron HCl (Zofran Inj) 4 mg Q6H PRN IV NAUSEA AND/OR VOMITING; Start 10/10 at 22:30 Acetaminophen (Tylenol Tab) 650 mg Q6H PRN PO PAIN LEVEL 1-3 OR FEVER; Start at 22:30 Docusate Sodium (Colace) 100 mg Q12H PRN PO CONSTIPATION; Start 10/10/16 at 22: 30 Bisacodyl (Dulcolax) 5 mg DAILY PRN PO CONSTIPATION; Start 10/10/16 at 22:30 Atorvastatin Calcium (Lipitor) 20 mg DAILY@21 PO Last administered on 20:17; Admin Dose 20 MG; Start 10/11/16 at 21:00 Miscellaneous Information 1 ea NOTE XX ; Start 10/10/16 at 23:00 Glucose (Glutose) 15 gm Q15M PRN PO DECREASED GLUCOSE; Start 10/10/16 at 23:00 Glucose (Glutose) 22.5 gm Q15M PRN PO DECREASED GLUCOSE; Start 10/10/16 at 23:00 Dextrose (D50w Syringe) 25 ml Q15M PRN IV DECREASED GLUCOSE; Start 10/10/16 at 23:00 Dextrose (D50w Syringe) 50 ml Q15M PRN IV DECREASED GLUCOSE; Start 10/10/16 at 23:00 Glucagon (Glucagen) 1 mg Q15M PRN IM DECREASED GLUCOSE; Start 10/10/16 at 23:00 Glucose (Glutose) 15 gm Q15M PRN BUCCAL DECREASED GLUCOSE; Start 10/10/16 at 23: 00 Hydralazine HCl (Apresoline) 10 mg Q6H PRN IV SBP>160; Start 10/11/16 at 10:00 Metoprolol Tartrate (Lopressor) 25 mg DAILY PO Last administered on 10/12/16 09:45; Admin Dose 25 MG; Start 10/12/16 at 09:00 Diagnostic Test (Pha) (Accu-Chek) 1 ea 02 XX ; Start 10/12/16 at 02:00 Famotidine 20 mg 20 mg Q24H PO Last administered on 10/11/16 20:17; Admin Dose 20 MG; Start 10/11/16 at 21:00 Ceftriaxone Sodium (Rocephin) 50 ml @ 100 mls/hr Q24H IVPB ; Start 10/12/16 at 14:00 MANDA SPRINGER NP Oct 12, 2016 14:44
[2016-10-12] MEDS: CEFTRIAXONE 1 GM/50 ML (PMX) 50 ML IVPB SCH (14:51)
[2016-10-12 15:02] VITALS: BP 149/62; RESP 18
--- NOTE | 2016-10-12 16:45 | CONS ---
Date/Time of Note Date/Time of Note DATE: 10/12/16 TIME: 16:30 Assessment/Plan Assessment/Plan Additional Assessment/Plan Assessment * Diarrhea Colitis inflammatory vs infectious by CT scan * Diabetes * UTI * Hypertension * Acute Kidney Injury Plan * Continue present medications * Colonoscopy tomorrow risks and benefit explained to family and agreed with the planned procedure Consultation Date/Type/Reason Admit Date/Time Oct 10, 2016 at 18:33 Date of Consultation: Oct 12, 2016 Type of Consultation: Gastroentero;logy Reason for Consultation diarrhea Referring Provider: MANDA SPRINGER [employer] Hx of Present Illness 85 year old female with past medical history of diabetes,hypertension presented in our emergency room because of diarrhea.Present condition apparently started 2 days prior to consult as abdominal pain ,vague in character with associated diarrhea.Diarrhea described as watery ,no mucus,claimed that it occurred after eating tacos together with the family but only one affected.She denies any fever nor any history of travel. Emergency room course revealed hemoglobin 13.1,hematocrit 39.7,WBC 8.3 CT scan of abdomen 1. Liquid stool is visualized throughout and normal caliber colon with top normal colonic wall thickness equivocal for mild diffuse colitis likely related to infectious or inflammatory etiologies, no stranding of the adjacent pericolonic fat is present. 2. Small sliding hiatal hernia. 3. Changes of prior cholecystectomy. 4. Bilateral renal cortex thinning and mild renal atrophy likely medical renal disease. 5. Diffuse atherosclerotic calcification of the aorta and iliac system. Presently patient denies any vomiting but had episodes of diarrhea .We have spoke with her family and explained the planned colonoscopy tomorrow,risks and benefit explained to family and agreed with the planned procedure Constitutional: improved, no complaints Eyes: no complaints ENT: no complaints Respiratory: no complaints Cardiovascular: no complaints Gastrointestinal: diarrhea, flatus, pain Genitourinary: no complaints Musculoskeletal: no complaints Skin: no complaints Neurologic: no complaints Endocrine: no complaints Lymphatic: no complaints Psychological: nl mood/affect, no complaints Immunologic: no complaints Past Medical History Medical History: diabetes, hypertension Past Surgical History Past Surgical Hx: no surgical history Social History Alcohol Use: none Smoking Status: Never smoker Drug Use: none Exam/Review of Systems Vital Signs Vitals Vital Signs Date Time Temp Pulse Resp B/P Pulse Ox O2 Delivery O2 Flow Rate FiO2 10/12/16 15:02 97.3 68 18 149/62 100 10/11/16 02:00 Room Air Intake and Output 10/11/16 10/11/16 10/12/16 15:00 23:00 07:00 Intake Total 512.5 ml 1660 ml 990 ml Output Total 750 ml Balance 512.5 ml 1660 ml 240 ml Exam Constitutional: alert, oriented Eyes: nl conjunctiva Neck: non-tender, supple Respiratory: clear to auscultation, normal air movement Cardiovascular: nl pulses, regular rate and rhythm Gastrointestinal: non-tender, soft Musculoskeletal: nl extremities to inspection, nl gait and stance Extremities: normal pulses Neurological: nl speech, nl strength Skin: nl turgor, No rash or lesions Results Result Diagram: 10/12/168 10/12/16 042 Results 24 hrs Laboratory Tests Test 10/11/16 17:00 10/11/16 17:32 10/11/16 20:16 10/12/16 04:28 Urine Color STRAW Urine Clarity SLIGHTLY CLOUDY A Urine pH 5.0 Urine Specific [place] 1.005 Urine Ketones NEGATIVE Urine Nitrite NEGATIVE Urine Bilirubin NEGATIVE Urine Urobilinogen NEGATIVE Urine Leukocyte Esterase 1+ H Urine Microscopic RBC 1 Urine Microscopic WBC 3 Urine Squamous Epithelial Cells FEW Urine Bacteria FEW A Urine Hemoglobin 1+ H Urine Glucose NEGATIVE Urine Total Protein NEGATIVE Bedside Glucose 77 85 White Blood Count 6.4 Red Blood Count 4.17 L Hemoglobin 11.9 L Hematocrit 37.3 Mean Corpuscular Volume 89.4 Mean Corpuscular Hemoglobin 28.5 L Mean Corpuscular Hemoglobin Concent 31.9 L Red Cell Distribution Width 14.6 H Platelet Count 160 Mean Platelet Volume 11.8 H Neutrophils % 59.3 Lymphocytes % 31.8 Monocytes % 7.4 Eosinophils % 0.9 Basophils % 0.3 Nucleated Red Blood Cells % 0.0 Neutrophils # 3.8 Lymphocytes # 2.0 Monocytes # 0.5 Eosinophils # 0.1 Basophils # 0.0 Nucleated Red Blood Cells # 0.0 Sodium Level 134 L Potassium Level 4.3 Chloride Level 108 Carbon Dioxide Level 23 Anion Gap 7 #L Blood Urea Nitrogen 25 H Creatinine 1.37 H Glucose Level 98 Calcium Level 8.3 L Phosphorus Level 2.6 Magnesium Level 1.8 Test 10/12/16 07:55 10/12/16 12:16 Bedside Glucose 87 124 Medications Medications Current Medications Ondansetron HCl (Zofran Inj) 4 mg Q6H PRN IV NAUSEA AND/OR VOMITING; Start 10/10 at 22:30 Acetaminophen (Tylenol Tab) 650 mg Q6H PRN PO PAIN LEVEL 1-3 OR FEVER; Start at 22:30 Docusate Sodium (Colace) 100 mg Q12H PRN PO CONSTIPATION; Start 10/10/16 at 22: 30 Bisacodyl (Dulcolax) 5 mg DAILY PRN PO CONSTIPATION; Start 10/10/16 at 22:30 Atorvastatin Calcium (Lipitor) 20 mg DAILY@21 PO Last administered on 20:17; Admin Dose 20 MG; Start 10/11/16 at 21:00 Miscellaneous Information 1 ea NOTE XX ; Start 10/10/16 at 23:00 Glucose (Glutose) 15 gm Q15M PRN PO DECREASED GLUCOSE; Start 10/10/16 at 23:00 Glucose (Glutose) 22.5 gm Q15M PRN PO DECREASED GLUCOSE; Start 10/10/16 at 23:00 Dextrose (D50w Syringe) 25 ml Q15M PRN IV DECREASED GLUCOSE; Start 10/10/16 at 23:00 Dextrose (D50w Syringe) 50 ml Q15M PRN IV DECREASED GLUCOSE; Start 10/10/16 at 23:00 Glucagon (Glucagen) 1 mg Q15M PRN IM DECREASED GLUCOSE; Start 10/10/16 at 23:00 Glucose (Glutose) 15 gm Q15M PRN BUCCAL DECREASED GLUCOSE; Start 10/10/16 at 23: 00 Hydralazine HCl (Apresoline) 10 mg Q6H PRN IV SBP>160; Start 10/11/16 at 10:00 Metoprolol Tartrate (Lopressor) 25 mg DAILY PO Last administered on 10/12/16 09:45; Admin Dose 25 MG; Start 10/12/16 at 09:00 Diagnostic Test (Pha) (Accu-Chek) 1 ea 02 XX ; Start 10/12/16 at 02:00 Famotidine 20 mg 20 mg Q24H PO Last administered on 10/11/16 20:17; Admin Dose 20 MG; Start 10/11/16 at 21:00 Ceftriaxone Sodium 50 ml @ 100 mls/hr Q24H IVPB Last administered on 14:51; Admin Dose 100 MLS/HR; Start 10/12/16 at 14:00 Metronidazole (Flagyl 500 Mg (Pmx)) 100 ml @ 100 mls/hr Q8 IVPB ; Start at 22:00 MERI YO MD Oct 12, 2016 16:40
[2016-10-12] MEDS ORDERED: MAGNESIUM CITRATE 300 ML BTL PO ONE (17:30)
[2016-10-12] MEDS ORDERED: BISACODYL (EC) 5 MG TAB PO ONE (17:30)
[2016-10-12] MEDS ORDERED: POLYETHYLENE GLYCOL 3350 119 GM POWDER PO ONE (18:30)
[2016-10-12] MEDS: ATORVASTATIN 20 MG TAB PO SCH (20:03)
[2016-10-12] MEDS: FAMOTIDINE 20 MG TAB PO SCH (20:03)
[2016-10-12 20:40] VITALS: BP 209/85; RESP 19
[2016-10-12] MEDS: metroNIDAZOLE 500 MG/NS (PMX) 100 ML IVPB SCH (21:24)
[2016-10-12 21:36] VITALS: BP 141/65; PULSE 82
[2016-10-13] VITALS (11 sets, daily range): BP systolic 105–200; BP diastolic 45–74; PULSE 56–60; RESP 15–22
[2016-10-13] MEDS: ACCUCHECK AT 2AM (Patients on SS coverage) XX SCH (02:00)
[2016-10-13] MEDS: metroNIDAZOLE 500 MG/NS (PMX) 100 ML IVPB SCH ×3 (05:04→22:06)
[2016-10-13] MEDS ORDERED: POLYETHYLENE GLYCOL 3350 119 GM POWDER PO ONE (06:00)
[2016-10-13 06:05] LABS: ADD SCAN DIFF NO; BASOPHILS % 0.4 % (0.0-2.0); EOSINOPHILS # 0.1 10^3/ul (0.0-0.5); EOSINOPHILS % 1.6 % (0.0-7.0); HEMATOCRIT 35.4 % (37.0-47.0); HEMOGLOBIN 12.2 g/dl (12.0-16.0); LYMPHOCYTES % 36.8 % (15.0-51.0); MEAN CORPUSCULAR HEMOGLOBIN 29.8 pg (29.0-33.0); MEAN CORPUSCULAR HGB CONC 34.5 g/dl (32.0-37.0); MEAN CORPUSCULAR VOLUME 86.6 fl (82.0-101.0); MEAN PLATELET VOLUME 10.8 fl (7.4-10.4); MONOCYTE # 0.5 10^3/ul (0.3-0.9); MONOCYTES % 8.5 % (0.0-11.0); NEUTROPHIL # 2.9 10^3/ul (1.6-7.5); NEUTROPHILS % 52.2 % (39.0-77.0); PLATELET COUNT 165 10^3/UL (140-415); RED BLOOD COUNT 4.09 10^6/ul (4.20-5.40); WHITE BLOOD COUNT 5.5 10^3/ul (4.8-10.8)
[2016-10-13 06:19] LABS: CALCIUM 8.8 mg/dl (8.4-10.2); MAGNESIUM 2.1 mg/dl (1.7-2.5); PHOSPHORUS 2.9 mg/dl (2.5-4.9); POTASSIUM 3.7 mmol/L (3.5-5.1)
[2016-10-13] MEDS: Insulin NOVOLOG SS MILD Algorithm (SS with meals and bedtime) SC SCH ×4 (07:30→21:35)
[2016-10-13] MEDS ORDERED: BISACODYL (EC) 5 MG TAB PO ONE (08:00)
[2016-10-13] MEDS: METOPROLOL 25 MG TAB PO SCH (08:34)
--- NOTE | 2016-10-13 10:59 | PN ---
Date/Time of Note Date/Time of Note DATE: 10/13/16 TIME: 10:48 Assessment/Plan VTE Prophylaxis VTE Prophylaxis Intervention: SCD's Lines/Catheters IV [facility] [place] Urinary Cath still in place: No Assessment/Plan Chief Complaint/Hosp Course 1. Acute nonoliguric kidney injury. Etiology unclear. Continue to monitor the BUN and creatinine closely. 2. Urinary tract infection. Urine culture positive for polymicrobial's. Continue antimicrobials as per sensitivities 3. Possible underlying colitis. Stool studies pending. Gastroenterology following. Plan for colonoscopy today. 4. Type 2 diabetes mellitus. Hemoglobin A1c 7.3. Continue sliding scale insulin. 5. Dyslipidemia. Continue statins. 6. Essential hypertension. Continue antihypertensives. 7. Fluids, electrolytes, and nutrition. Carbohydrate controlled diet. IV fluid management as per nephrology. 8. DVT prophylaxis. Bilateral sequential compression devices. 9. Gastrointestinal prophylaxis with histamine 2 receptor blockers. 10. Plan. Continue antibiotics. Await colonoscopy. Case discussed with Dr. Morrison. Problems: Subjective 24 Hr Interval Summary Free Text/Dictation Denies any diarrhea. Exam/Review of Systems Vital Signs Vitals Vital Signs Date Time Temp Pulse Resp B/P Pulse Ox O2 Delivery O2 Flow Rate FiO2 10/13/16 07:15 97.6 84 18 171/72 100 10/11/16 02:00 Room Air Intake and Output 10/12/16 10/12/16 10/13/16 15:00 23:00 07:00 Intake Total 550 ml 650 ml 100 ml Balance 550 ml 650 ml 100 ml Exam General: Adequately build 85 year-old female lying in bed in no apparent distress. HEENT: Normocephalic, atraumatic. Eyes: Anicteric sclerae, conjunctivae clear. ENT: Nasal septum midline, oral mucosa moist. Neck supple, no JVD noticed. Respiratory: Bilaterally clear breath sounds. No use of accessory muscles of respiration. No adventitious breath sounds. Cardiovascular: S1, S2 heard. Regular rate and rhythm. Abdomen: Soft, nontender, and nondistended. Bowel sounds positive in all 4 quadrants. Genitourinary: Deferred. Extremities: No cyanosis, no clubbing, no edema. Peripheral pulses palpable. Neurologic: Cranial nerves II through XII grossly intact. The patient is awake, alert, and oriented. Skin: Normal skin turgor. No skin rashes. Results Result Diagram: 10/13/16 0524 10/13/16 0524 Results 24 hrs Laboratory Tests Test 10/12/16 12:16 10/12/16 17:27 10/12/16 20:00 10/13/16 05:24 Bedside Glucose 124 108 101 White Blood Count 5.5 Red Blood Count 4.09 L Hemoglobin 12.2 Hematocrit 35.4 L Mean Corpuscular Volume 86.6 Mean Corpuscular Hemoglobin 29.8 Mean Corpuscular Hemoglobin Concent 34.5 Red Cell Distribution Width 14.0 Platelet Count 165 Mean Platelet Volume 10.8 H Neutrophils % 52.2 Lymphocytes % 36.8 Monocytes % 8.5 Eosinophils % 1.6 Basophils % 0.4 Nucleated Red Blood Cells % 0.0 Neutrophils # 2.9 Lymphocytes # 2.0 Monocytes # 0.5 Eosinophils # 0.1 Basophils # 0.0 Nucleated Red Blood Cells # 0.0 Sodium Level 136 Potassium Level 3.7 Chloride Level 107 Carbon Dioxide Level 26 Anion Gap 7 L Blood Urea Nitrogen 17 Creatinine 1.00 Glucose Level 116 Calcium Level 8.8 Phosphorus Level 2.9 Magnesium Level 2.1 Test 10/13/16 07:51 Bedside Glucose 101 Medications Medications Current Medications Ondansetron HCl (Zofran Inj) 4 mg Q6H PRN IV NAUSEA AND/OR VOMITING; Start 10/10 at 22:30 Acetaminophen (Tylenol Tab) 650 mg Q6H PRN PO PAIN LEVEL 1-3 OR FEVER; Start at 22:30 Docusate Sodium (Colace) 100 mg Q12H PRN PO CONSTIPATION; Start 10/10/16 at 22: 30 Bisacodyl (Dulcolax) 5 mg DAILY PRN PO CONSTIPATION; Start 10/10/16 at 22:30 Atorvastatin Calcium (Lipitor) 20 mg DAILY@21 PO Last administered on t 20:03; Admin Dose 20 MG; Start 10/11/16 at 21:00 Miscellaneous Information 1 ea NOTE XX ; Start 10/10/16 at 23:00 Glucose (Glutose) 15 gm Q15M PRN PO DECREASED GLUCOSE; Start 10/10/16 at 23:00 Glucose (Glutose) 22.5 gm Q15M PRN PO DECREASED GLUCOSE; Start 10/10/16 at 23:00 Dextrose (D50w Syringe) 25 ml Q15M PRN IV DECREASED GLUCOSE; Start 10/10/16 at 23:00 Dextrose (D50w Syringe) 50 ml Q15M PRN IV DECREASED GLUCOSE; Start 10/10/16 at 23:00 Glucagon (Glucagen) 1 mg Q15M PRN IM DECREASED GLUCOSE; Start 10/10/16 at 23:00 Glucose (Glutose) 15 gm Q15M PRN BUCCAL DECREASED GLUCOSE; Start 10/10/16 at 23: 00 Hydralazine HCl (Apresoline) 10 mg Q6H PRN IV SBP>160 Last administered on 10/12 20:39; Admin Dose 10 MG; Start 10/11/16 at 10:00 Metoprolol Tartrate (Lopressor) 25 mg DAILY PO Last administered on 10/13/16 08:34; Admin Dose 25 MG; Start 10/12/16 at 09:00 Diagnostic Test (Pha) (Accu-Chek) 1 ea 02 XX ; Start 10/12/16 at 02:00 Famotidine 20 mg 20 mg Q24H PO Last administered on 10/12/16 20:03; Admin Dose 20 MG; Start 10/11/16 at 21:00 Ceftriaxone Sodium 50 ml @ 100 mls/hr Q24H IVPB Last administered on 14:51; Admin Dose 100 MLS/HR; Start 10/12/16 at 14:00 Metronidazole (Flagyl 500 Mg (Pmx)) 100 ml @ 100 mls/hr Q8 IVPB Last administered on 10/13/16 05:04; Admin Dose 100 MLS/HR; Start 10/12/16 at 22:00 Amoxicillin (Amoxicillin) 500 mg Q6 PO ; Start 10/13/16 at 12:00; Status MANDA ALEJANDRE NP Oct 13, 2016 10:59
[2016-10-13] MEDS: AMOXICILLIN 500 MG CAP PO SCH ×3 (12:56→23:41)
[2016-10-13] MEDS: CEFTRIAXONE 1 GM/50 ML (PMX) 50 ML IVPB SCH (13:00)
[2016-10-13] MEDS ORDERED: DEXTROSE 5%-0.45% NACL 1,000 ML IV SCH (17:30)
[2016-10-13] MEDS ORDERED: MIDAZOLAM 1 MG/ML 2 ML INJ ONE (19:17)
[2016-10-13] MEDS ORDERED: PROPOFOL 20 ML ONE (19:18)
--- NOTE | 2016-10-13 20:13 | HPN ---
Date/Time of Note Date/Time of Note DATE: 10/13/16 TIME: 20:13 Interval H&P Admission Note Pt. seen H&P reviewed: No system changes MERI YO MD Oct 13, 2016 20:13
--- NOTE | 2016-10-13 20:16 | OPR ---
Date/Time of Note Date/Time of Note DATE: 10/13/16 TIME: 20:13 Operative Report Preoperative Diagnosis * Diarrhea Postoperative Diagnosis Impression: * Normal colonic mucosa to cecum. * Rule out microscopic, lymphocytic or collagenous colitis. Random biopsies obtained right and left colon. * Large internal hemorrhoids Plan: * Review pathology as soon as available * Advance diet to lactose-free diet * Imodium 2 mg as needed for more than 3 bowel movements per 8 hours . Operation/Procedure Performed * Colonoscopy with biopsies . Surgeon: MERI YO MD Anesthesia: MAC Estimated Blood Loss: none Specimens * Right and left colon Grafts/Implants * None Complications: None MERI YO MD Oct 13, 2016 20:16
[2016-10-13] MEDS ORDERED: ONDANSETRON 4 MG INJ IV PRN (20:30)
[2016-10-13] MEDS ORDERED: HYDROmorphONE (0.2 MG/ML) 10ML SYG IV PRN (20:30)
[2016-10-13] MEDS: FAMOTIDINE 20 MG TAB PO SCH (22:06)
[2016-10-13] MEDS: ATORVASTATIN 20 MG TAB PO SCH (22:06)
[2016-10-14] MEDS: ACCUCHECK AT 2AM (Patients on SS coverage) XX SCH (02:00)
[2016-10-14 02:47] VITALS: BP 172/71; RESP 17
[2016-10-14 04:54] LABS: ADD SCAN DIFF NO
[2016-10-14 04:56] LABS: HEMATOCRIT 34.5 % (37.0-47.0); HEMOGLOBIN 11.3 g/dl (12.0-16.0); MEAN CORPUSCULAR HGB CONC 32.8 g/dl (32.0-37.0); MEAN CORPUSCULAR VOLUME 88.5 fl (82.0-101.0); MEAN PLATELET VOLUME 11.1 fl (7.4-10.4); PLATELET COUNT 141 10^3/UL (140-415); RED CELL DISTRIBUTION WIDTH 14.2 % (11.5-14.5); WHITE BLOOD COUNT 4.9 10^3/ul (4.8-10.8)
[2016-10-14] MEDS: AMOXICILLIN 500 MG CAP PO SCH ×2 (05:13→12:06)
[2016-10-14] MEDS: metroNIDAZOLE 500 MG/NS (PMX) 100 ML IVPB SCH ×2 (05:14→13:34)
[2016-10-14 05:17] LABS: MAGNESIUM 2.1 mg/dl (1.7-2.5); PHOSPHORUS 3.6 mg/dl (2.5-4.9)
[2016-10-14 05:19] LABS: CALCIUM 8.6 mg/dl (8.4-10.2); CREATININE 1.15 mg/dl (0.44-1.00); POTASSIUM 3.9 mmol/L (3.5-5.1)
[2016-10-14] MEDS: Insulin NOVOLOG SS MILD Algorithm (SS with meals and bedtime) SC SCH ×2 (07:30→11:30)
[2016-10-14] MEDS: METOPROLOL 25 MG TAB PO SCH (07:54)
[2016-10-14 09:41] LABS: EOSINOPHILS # 0.4 10^3/ul (0.0-0.5); MONOCYTE # 0.2 10^3/ul (0.3-0.9); NEUTROPHIL # 2.3 10^3/ul (1.6-7.5)
--- NOTE | 2016-10-14 11:51 | PDOCDIS ---
Discharge Instructions DIAGNOSIS Discharge Diagnosis UTI. CONDITION Patient Condition: Stable HOME CARE INSTRUCTIONS: Special Diet: Carbohydrate controlled FOLLOW UP/APPOINTMENTS Follow-up Plan Hadley Butler MD Specialty: Internal Medicine Office Address: [address] [place], [place] [id number] Office OTHER ORDERS: Other Orders: 1. Take medications as per prescription. Resume home medications except benazepril until cleared by your primary care physician. 2. Carbohydrate controlled diet (lactose free). 3. Resume activities as tolerated. 4. Follow-up with a primary care physician in 1 week. If you do not have a primary care physician, please call Dr. Hadley Butler's office. 5. Please call your primary care physician or go to the nearest emergency room , if you continue to have significant abdominal pain or multiple episodes of diarrhea despite medications. MANDA SPRINGER NP Oct 14, 2016 11:51
[2016-10-14] MEDS ORDERED: IMO2 PO (11:58)
[2016-10-14] MEDS ORDERED: LEVO500T10 PO (11:58)
[2016-10-14] MEDS ORDERED: SACC250C PO (11:58)
[2016-10-14] MEDS: CEFTRIAXONE 1 GM/50 ML (PMX) 50 ML IVPB SCH (12:07)
--- NOTE | 2016-10-14 12:38 | DS ---
Date/Time of Note Date/Time of Note DATE: 10/14/16 TIME: 12:36 Discharge Summary Admission/Discharge Info Admit Date/Time Oct 10, 2016 at 18:33 Discharge Date/Time Discharge Diagnosis 1. Acute nonoliguric kidney injury. 2. Urinary tract infection. 3. Possible underlying colitis. Status post colonoscopy with no evidence of colitis. 4. Type 2 diabetes mellitus. Hemoglobin A1c 7.3. 5. Dyslipidemia. 6. Essential hypertension. Patient Condition: Stable Consults 1. Dorys Saab MD, Gastroenterology. 2. Benitez Carson DO, Nephrology. Procedures Colonoscopy Impression: * Normal colonic mucosa to cecum. * Rule out microscopic, lymphocytic or collagenous colitis. Random biopsies obtained right and left colon. * Large internal hemorrhoids Hx of Present Illness Chief complaint: Diarrhea 3-4 days This is a 85-year-old woman brought in by family members for 2-3 episodes of diarrhea for the last 3-4 days, her symptoms also began with vomiting which has improved. She has had no blood per rectum, no chest pain or shortness of breath , no loss of consciousness, no recent antibiotic use or recent travel. She has felt weak and dizzy. She does state that a few days ago her relative brought tacos from an outside restaurant and she did state that he did not taste right to her. Allergies: NKDA Medications: See [facility] Hospital Course The patient was admitted to inpatient medical surgical floor. Patient was started on empiric antibiotics. Nephrology consult was obtained because of the patient's underlying renal failure. The patient's urine culture showed polymicrobial's. Patient's antibiotics were tailored appropriately according to the sensitivities. The patient underwent a CT scan of abdomen and pelvis that showed liquid stool through out the colon with normal caliber colon with wall thickness that ranges suggestive of mild diffuse colitis. Therefore, a gastroenterology consult was called. The patient underwent a colonoscopy on 03/2017 that showed normal colonic mucosa to the cecum with large internal hemorrhoids. Gastroenterology recommended to start the patient on a lactose- free diet and to keep Imodium 2 mg as needed for more than 3 bowel movements per 8 hours. The pathology results for biopsies are pending at this time. The patient had acute nonoliguric kidney injury. The etiology of this could be a combination of dehydration from multiple episodes of diarrhea and also from the use of benazepril that she was taking at home. The patient's nephrotoxic medications were held. The patient was adequately hydrated with improvement the patient's renal function. The patient has underlying essential hypertension. She was maintained on antihypertensives for the same. The patient has underlying type 2 diabetes mellitus. The patient's hemoglobin A1c was found to be 7.3. The patient was maintained on sliding scale insulin. The patient had hypoglycemic episode during the day of admission. This could be most probably sulfonylurea induced. Hence, the patient will be switched to DPP 4 inhibitors before discharging the patient home to avoid any further episodes of hypoglycemia. The patient has underlying dyslipidemia. The patient was maintained on statins. The patient's fasting lipid panel was unsatisfactory. The patient had a stable hospital course. The patient was cleared by consultants to be discharged home. Discharge Instructions 1. Take medications as per prescription. Resume home medications except benazepril until cleared by your primary care physician. 2. Carbohydrate controlled diet (lactose free). 3. Resume activities as tolerated. 4. Follow-up with a primary care physician in 1 week. If you do not have a primary care physician, please call Dr. Hadley Butler's office. 5. Please call your primary care physician or go to the nearest emergency room , if you continue to have significant abdominal pain or multiple episodes of diarrhea despite medications. The patient's family verbalized understanding of the discharge instructions. Case discussed with Dr. Morrison. Home Meds Active Scripts Linagliptin (TRADJENTA) 5 Mg Tablet, 5 MG PO DAILY, #30 TAB Prov:MANDA SPRINGER NP 10/14/16 Saccharomyces Boulardii* (Florastor*) 250 Mg Cap, 500 MG PO BID for 10 Days, CAP Prov:MANDA SPRINGER NP 10/14/16 Loperamide Hcl* (Loperamide Hcl*) 2 Mg Cap, 2 MG PO Q8H for DIARRHEA, #4 CAP Prov:MANDA SPRINGER NP 10/14/16 Levofloxacin* (Levofloxacin*) 500 Mg Tablet, 500 MG PO Q48H, #7 TAB Prov:MANDA SPRINGER NP 10/14/16 Reported Medications Simvastatin* (Zocor*) 40 Mg Tablet, 40 MG PO QHS, #30 TAB 10/10/16 Metoprolol Tartrate* (Lopressor*) 25 Mg Tab, 25 MG PO DAILY, #60 TAB 10/10/16 Discontinued Reported Medications Benazepril Hcl* (Benazepril Hcl*) 40 Mg Tablet, 40 MG PO DAILY, #30 TAB 10/10/16 Glipizide* (Glipizide*) 10 Mg Tablet, 10 MG PO AC BREAKFAST, TAB 10/10/16 Follow-up Plan Follow-up with your primary care physician 1 week. Primary Care Provider Care Physician No Primary Time spent on discharge: > 30 minutes Pending Labs Laboratory Tests Test 10/13/16 17:23 10/13/16 19:08 10/13/16 21:55 10/14/16 04:29 Bedside Glucose 95mg/dL (70-220) 84mg/dL (70-220) 143mg/dL (70-220) Sodium Level 136mmol/L (135-144) Potassium Level 3.9mmol/L (3.5-5.1) Chloride Level 108mmol/L (97-110) Carbon Dioxide Level 28mmol/L (21-31) Anion Gap 4 (8-16) Blood Urea Nitrogen 13mg/dl (7-20) Creatinine 1.15mg/dl (0.44-1.00) Glucose Level 106mg/dl (70-220) Calcium Level 8.6mg/dl (8.4-10.2) Test 10/14/16 04:31 10/14/16 07:53 10/14/16 12:13 White Blood Count 4.910^3/ul (4.8-10.8) Red Blood Count 3.9010^6/ul (4.20-5.40) Hemoglobin 11.3g/dl (12.0-16.0) Hematocrit 34.5% (37.0-47.0) Mean Corpuscular Volume 88.5fl (82.0-101.0) Mean Corpuscular Hemoglobin 29.0pg (29.0-33.0) Mean Corpuscular Hemoglobin Concent 32.8g/dl (32.0-37.0) Red Cell Distribution Width 14.2% (11.5-14.5) Platelet Count 14102^3/UL (140-415) Mean Platelet Volume 11.1fl (7.4-10.4) Neutrophils % 46.0% (39.0-77.0) Lymphocytes % 41.0% (15.0-51.0) Monocytes % 5.0% (0.0-11.0) Eosinophils % 8.0% (0.0-7.0) Neutrophils # 2.310^3/ul (1.6-7.5) Lymphocytes # 2.010^3/ul (0.8-2.9) Monocytes # 0.210^3/ul (0.3-0.9) Eosinophils # 0.410^3/ul (0.0-0.5) Phosphorus Level 3.6mg/dl (2.5-4.9) Magnesium Level 2.1mg/dl (1.7-2.5) Bedside Glucose 92mg/dL (70-220) 110mg/dL (70-220) MANDA SPRINGER NP Oct 14, 2016 12:38
--- NOTE | 2016-10-14 13:04 | CONS ---
DATE OF ADMISSION: 10/10/2016 DATE OF CONSULTATION: 10/11/2016 REASON FOR CONSULTATION: Acute kidney injury, possible chronic kidney disease. PHYSICIAN REQUESTING CONSULT: Matthew Root MD HISTORY OF PRESENT ILLNESS: This is a 85-year-old female with a past medical history of hypertension, history of diabetes who presents to [facility] with complaints of diarrhea, nausea, vomiting. The patient apparently over the past 3-4 days has had 2-3 episodes of nausea, vomiting, as well as multiple episodes of diarrhea. The patient had difficulty tolerating p.o. The patient was complaining of weakness and dizziness as well. She came into the emergency room. Upon arrival, she had no shortness of breath. No loss of consciousness. No recent antibiotic use or travel. The patient, in the emergency room, had laboratory data drawn which showed a sodium level of 146, BUN 34, creatinine 2.67, glucose of 249. The patient had urinalysis performed as well which showed a few bacteria and 12 WBCs. In the emergency room patient was placed on IV fluids, was given IV antibiotics, and admitted to [facility] for further evaluation. In terms of the patient's renal history, patient has no known history of chronic kidney disease or acute kidney injury. She is a long-standing diabetic. Patient's family states that she has not seen a doctor or had blood work done in many years. The patient denies any recent episodes of rashes or hematuria or dysuria. PAST MEDICAL HISTORY: Stated above. History of hypertension, history of diabetes, history of possible thyroid disorder. PAST SURGICAL HISTORY: None. ALLERGIES: NO KNOWN DRUG ALLERGIES. FAMILY HISTORY: Noncontributory. SOCIAL HISTORY: Does not drink, smoke or do drugs. MEDICATION: Reviewed. REVIEW OF SYSTEMS: Fourteen point review of system was conducted. Pertinent positives stated in the HPI. Otherwise negative. PHYSICAL EXAMINATION: VITAL SIGNS: Blood pressure is 140/62, respirations 20, pulse 72, temperature 98.3. HEENT: Head is normocephalic. Pupils are reactive to light. NECK: Supple. HEART: Regular rate. LUNGS: Show diminished breath sounds at the bases. Otherwise clear. ABDOMEN: Soft, nontender to palpation. No rebound or guarding. EXTREMITIES: Negative for clubbing, cyanosis, no edema. DERMATOLOGY: No rashes. MUSCULOSKELETAL: No joint effusion. NEUROLOGIC: No focal deficits. LABORATORY: Urinalysis shows a FENa of greater than 1 percent, protein creatinine ratio of approximately 200 mg per gram of creatinine. Patient has a BMP: Sodium 142, potassium 3.2, BUN 30, creatinine 1.99. Renal ultrasound shows increased echogenicity of the kidneys consistent with medical renal disease. ASSESSMENT/PLAN: This is an 85-year-old female who presents with problem: 1. Nonoliguric acute kidney injury on top of chronic kidney disease with unknown baseline creatinine. Etiology of acute kidney injury is likely hemodynamics from volume depletion due to gastrointestinal losses, possibility of tubular injury is also a consideration. The patient's urinalysis shows no active sediment, no significant proteinuria. The patient's renal ultrasound shows increased echogenicity consistent with chronic kidney disease but no obstruction. The patient's renal function has been improving with intravenous fluids. Plan at this point, would be to continue current treatment plan. Continue IV fluids. Continue supportive care. Renal dose all meds. We will monitor renal function closely. 2. Hypokalemia, replete potassium chloride. 3. Anemia. We will monitor H and H levels. 4. Mineral bone disorder. We will check calcium, phosphorus, PTH, vitamin D25 level. 5. Gastroenteritis. Continue supportive care. Continue IV fluids. 6. Diabetes. Continue Accu-Cheks with insulin sliding scale. 7. Hypertension. Continue current blood pressure regimen. 8. Likely chronic kidney disease, possibly due to underlying diabetes and hypertension. We will continue to treat acute kidney injury as stated above. Would otherwise continue disease factor modification, good blood pressure and glycemic control. Thank you, Dr. Root for this interesting consult. It will be a pleasure to follow the patient with you throughout the hospital course. Dictated By: Benitez Carson DO /татьяна/saman /Document#: [id number]
[2016-10-14] MEDS ORDERED: LINA5TAB PO (13:23)
[2016-10-14 14:30] VITALS: BP 150/69; RESP 16
--- NOTE | 2016-10-14 15:11 | PN ---
Date/Time of Note Date/Time of Note DATE: 10/14/16 TIME: 15:06 Assessment/Plan VTE Prophylaxis VTE Prophylaxis Intervention: ambulation Lines/Catheters IV Catheter Type (from [facility]): Saline Lock Urinary Cath still in place: No Assessment/Plan Assessment/Plan Assessment * Diarrhea resolved colonoscopy Normal colonic mucosa to cecum. * Rule out microscopic, lymphocytic or collagenous colitis. Random biopsies obtained right and left colon. * Large internal hemorrhoids * Diabetes * UTI * Hypertension * Acute Kidney Injury Plan * Stable for outpatient management * case discussed with Dr Saab Subjective 24 Hr Interval Summary Free Text/Dictation * Course reviewed with RN * Patient seen and examined * Colonoscopy Normal colonic mucosa to cecum. Rule out microscopic, lymphocytic or collagenous colitis. Random biopsies obtained right and left colon. Large internal hemorrhoids Exam/Review of Systems Vital Signs Vitals Vital Signs Date Time Temp Pulse Resp B/P Pulse Ox O2 Delivery O2 Flow Rate FiO2 10/14/16 14:30 98.0 61 16 150/69 95 10/13/16 20:36 Room Air 10/13/16 20:26 6.0 Intake and Output 10/13/16 10/13/16 10/14/16 15:00 23:00 07:00 Intake Total 150 ml 960 ml 400 ml Balance 150 ml 960 ml 400 ml Exam Constitutional: alert, frail Head: normocephalic Neck: non-tender, supple Respiratory: clear to auscultation, normal air movement Cardiovascular: nl pulses, regular rate and rhythm Gastrointestinal: non-tender, soft Musculoskeletal: nl extremities to inspection, nl gait and stance Extremities: normal pulses Skin: nl turgor, No rash or lesions Lymph: nl lymph nodes Results Result Diagram: 10/14/16 0431 10/14/16 0429 Results 24 hrs Laboratory Tests Test 10/13/16 17:23 10/13/16 19:08 10/13/16 21:55 10/14/16 04:29 Bedside Glucose 95 84 143 Sodium Level 136 Potassium Level 3.9 Chloride Level 108 Carbon Dioxide Level 28 Anion Gap 4 L Blood Urea Nitrogen 13 Creatinine 1.15 H Glucose Level 106 Calcium Level 8.6 Test 10/14/16 04:31 10/14/16 07:53 10/14/16 12:13 White Blood Count 4.9 Red Blood Count 3.90 L Hemoglobin 11.3 L Hematocrit 34.5 L Mean Corpuscular Volume 88.5 Mean Corpuscular Hemoglobin 29.0 Mean Corpuscular Hemoglobin Concent 32.8 Red Cell Distribution Width 14.2 Platelet Count 141 Mean Platelet Volume 11.1 H Neutrophils % 46.0 Lymphocytes % 41.0 Monocytes % 5.0 Eosinophils % 8.0 H Neutrophils # 2.3 Lymphocytes # 2.0 Monocytes # 0.2 L Eosinophils # 0.4 Phosphorus Level 3.6 Magnesium Level 2.1 Bedside Glucose 92 110 Medications Medications Current Medications Ondansetron HCl (Zofran Inj) 4 mg Q6H PRN IV NAUSEA AND/OR VOMITING; Start 10/10 at 22:30 Acetaminophen (Tylenol Tab) 650 mg Q6H PRN PO PAIN LEVEL 1-3 OR FEVER; Start at 22:30 Docusate Sodium (Colace) 100 mg Q12H PRN PO CONSTIPATION; Start 10/10/16 at 22: 30 Bisacodyl (Dulcolax) 5 mg DAILY PRN PO CONSTIPATION; Start 10/10/16 at 22:30 Atorvastatin Calcium (Lipitor) 20 mg DAILY@21 PO Last administered on 22:06; Admin Dose 20 MG; Start 10/11/16 at 21:00 Miscellaneous Information 1 ea NOTE XX ; Start 10/10/16 at 23:00 Glucose (Glutose) 15 gm Q15M PRN PO DECREASED GLUCOSE; Start 10/10/16 at 23:00 Glucose (Glutose) 22.5 gm Q15M PRN PO DECREASED GLUCOSE; Start 10/10/16 at 23:00 Dextrose (D50w Syringe) 25 ml Q15M PRN IV DECREASED GLUCOSE; Start 10/10/16 at 23:00 Dextrose (D50w Syringe) 50 ml Q15M PRN IV DECREASED GLUCOSE; Start 10/10/16 at 23:00 Glucagon (Glucagen) 1 mg Q15M PRN IM DECREASED GLUCOSE; Start 10/10/16 at 23:00 Glucose (Glutose) 15 gm Q15M PRN BUCCAL DECREASED GLUCOSE; Start 10/10/16 at 23: 00 Hydralazine HCl (Apresoline) 10 mg Q6H PRN IV SBP>160 Last administered on 10/12 20:39; Admin Dose 10 MG; Start 10/11/16 at 10:00 Metoprolol Tartrate (Lopressor) 25 mg DAILY PO Last administered on 10/14/16 07:54; Admin Dose 25 MG; Start 10/12/16 at 09:00 Diagnostic Test (Pha) (Accu-Chek) 1 XX ; Start 10/12/16 at 02:00 Famotidine 20 mg 20 mg Q24H PO Last administered on 10/13/16 22:06; Admin Dose 20 MG; Start 10/11/16 at 21:00 Ceftriaxone Sodium 50 ml @ 100 mls/hr Q24H IVPB Last administered on 12:07; Admin Dose 100 MLS/HR; Start 10/12/16 at 14:00 Metronidazole (Flagyl 500 Mg (Pmx)) 100 ml @ 100 mls/hr Q8 IVPB Last administered on 10/14/16 13:34; Admin Dose 100 MLS/HR; Start 10/12/16 at 22:00 Amoxicillin (Amoxicillin) 500 mg Q6 PO Last administered on 10/14/16 12:06; Admin Dose 500 MG; Start 10/13/16 at 12:00 ZAIDA ALEXANDER NP Oct 14, 2016 15:11
== END 2016-10-14 15:24 | disposition home or self-care (01) | DRG 392 ==
LOC: E/R 15:39 → PP2 18:33
PROVIDERS: ADMIT Internal Medicine; ATTEND Internal Medicine
PROC: 0DBF8ZX Excision of Right Large Intestine, Via Natural or Artificial Opening Endoscopic, Diagnostic (ICD-10-PCS; 2016-10-13)
PROC: 0DBG8ZX Excision of Left Large Intestine, Via Natural or Artificial Opening Endoscopic, Diagnostic (ICD-10-PCS; principal; 2016-10-13 19:00)
DX: K52.831 Collagenous colitis (principal); N17.9 Acute kidney failure, unspecified; E11.649 Type 2 diabetes mellitus with hypoglycemia without coma; E11.22 Type 2 diabetes mellitus with diabetic chronic kidney disease; N39.0 Urinary tract infection, site not specified; K52.9 Noninfective gastroenteritis and colitis, unspecified; E86.0 Dehydration; I12.9 Hypertensive chronic kidney disease with stage 1 through stage 4 chronic kidney disease, or unspecified chronic kidney disease; N18.9 Chronic kidney disease, unspecified; E07.9 Disorder of thyroid, unspecified; D64.9 Anemia, unspecified; K64.8 Other hemorrhoids; E87.6 Hypokalemia; E83.9 Disorder of mineral metabolism, unspecified
CPT/HCPCS: 36415; 71010; 74176; 76775; 80048; 80053; 80061; 81001; 81003; 82043; 82962; 83036; 83525; 83690; 83735; 83930; 83935; 84100; 84155; 84300; 84439; 84443; 84484; 84681; 85025; 85610; 86337; 87086; 88305; 93005; 96374; 96375; J0360; J0696; J1815; J1885; J2250; J2405; J7030; J7042

== ENCOUNTER 2017-07-15 13:40 | Emergency (ER) | END 2017-07-15 19:50 | disposition home or self-care (01) ==

== ENCOUNTER 2018-10-10 17:53 | Emergency (ER) | payer MEDICAID ==
[~2018-10-10] VITALS: Wt 75.0 kg
[~2018-10-10 17:53] MED LIST: ATOR40TA68 PO; BENA40TA56 PO; CALC-134 PO; CEPH-443 PO; CHOL200056 PO; GLIP10TA14 PO; METO-448 PO; OMEG-135 PO; SULF1TAB31 PO
[2018-10-10] MEDS ORDERED: CEFAZOLIN 1 GM/50 ML (PMX) 50 ML IVPB SCH (21:00)
[2018-10-10] MEDS ORDERED: CEPH-443 PO (22:17)
[2018-10-10] MEDS ORDERED: SULF1TAB31 PO (22:17)
[2018-10-10 22:50] VITALS: BP 185/65; PULSE 69; RESP 24
--- NOTE | 2018-10-12 12:45 | ERD ---
ER Documentation Chief Complaint Chief Complaint FALL LAST TUESDAY, HAS LEFT LEG WOUND/ REDNESS, HX DM HPI This is a very pleasant 87-year-old female that presented to the emergency department with pain and swelling of her left lower extremity. The patient had a mechanical trip and fall roughly 5 days prior to arrival. She suffered an abrasion around her ankle. Since that time she stated that there is been redness and swelling. She had no fevers or shaking no chills. She denies any shortness of breath at rest or exertion. She is a history of mco-zkhsasb-forwckicx diabetes mellitus. She denies any calf tenderness or mu scle spasms. She has no chest pain. She denies a headache. She states she has been able to ambulate. ROS All systems reviewed and are negative except as per history of present illness. Medications Home Meds Active Scripts Cephalexin* (Keflex*) 500 Mg Capsule, 500 MG PO QID for 10 Days, CAP Prov:QUENTIN UGALDE MD 10/10/18 Sulfamethoxazole/Trimethoprim* (Bactrim Ds* Tablet) 1 Each Tablet, 1 TAB PO BID, #20 TAB Prov:QUENTIN UGALDE MD 10/10/18 Cephalexin* (Keflex*) 500 Mg Capsule, 500 MG PO QID for 10 Days, CAP Prov:LAMONT MURRAY MD 07/15/17 Sulfamethoxazole/Trimethoprim* (Bactrim Ds* Tablet) 1 Each Tablet, 1 TAB PO BID, #20 TAB Prov:LAMONT MURRAY MD 07/15/17 Reported Medications Atorvastatin* (Atorvastatin*) 40 Mg Tablet, 40 MG PO QHS, #30 TAB 07/15/17 Glipizide* (Glipizide*) 10 Mg Tablet, 10 MG PO AC BREAKFAST, TAB 07/15/17 Cholecalciferol (Vitamin D3) (Vitamin D-3) 2,000 Unit Tablet, 2000 UNIT PO DAILY, TAB 07/15/17 Calcium Carbonate/Vitamin D3 (Calcium + Vitamin D Tablet) 1 Each Tablet, 1 EACH PO BID, TAB 07/15/17 [place]-3 Fatty Acids/Fish Oil (Fish Oil 1,000 mg Capsule) 1 Each Capsule, 1 EACH PO BID, CAP 07/15/17 Benazepril Hcl* (Benazepril Hcl*) 40 Mg Tablet, 40 MG PO DAILY, #30 TAB 07/15/17 Metoprolol Tartrate* (Lopressor*) 25 Mg Tab, 25 MG PO BID, #60 TAB 07/15/17 Allergies Allergies: Coded Allergies: No Known Allergy (Unverified , 10/11/18) PMhx/Soc History of Surgery: Yes (CHOLECYSTECTOMY ) Anesthesia Reaction: No Hx Respiratory Disorders: No Hx Cardiac Disorders: Yes (HTN, HLD, DM) Hx Psychiatric Problems: No Hx Miscellaneous Medical Probl: Yes (CKD) Hx Alcohol Use: No Hx Substance Use: No Hx Tobacco Use: No Smoking Status: Never smoker Physical Exam Vitals Vital Signs Date Temp Pulse Resp B/P (MAP) Pulse Ox O2 O2 Flow FiO2 Time Delivery Rate 10/10/18 98.5 69 24 185/65 100 Room Air 22:50 (105) 10/10/18 65 22 151/66 100 Room Air 20:15 (94) 10/10/18 98.2 74 18 131/73 99 17:56 (92) Physical Exam Constitutional:Well-developed. Well-nourished. HEENT:Normocephalic. Atraumatic.Pupils were equal round reactive to light. Moist mucous membranes.No tonsillar exudates. Respiratory: Not using accessory muscles of respiration.Lungs were clear to a uscultation bilaterally. No rhonchi. No rales. No wheezing. Cardiovascular: Regular rate regular rhythm.No murmurs. No rubs were appreciated.S1, S2 normal. Distal pulses are palpable 2+ bilaterally. GI: Abdomen was soft. Nontender. Non Distended. No pulsatile abdominal masses or bruits. No rebound. No guarding. Bowel sounds were present and normal. Muscle skeletal: Full range of motion of both the upper and lower extremities bilaterally.Normal muscle tone.No assymetrical calf tenderness or swelling. Patient able to ambulate more than 4 steps in the emergency department. Tenderness over the left medial malleolus. No midfoot tenderness on the left. No tenderness over the base of the fifth metatarsal. No tenderness over the left lateral malleolus. Skin: No petechia, no purpura. No lesions on the palms or the soles of the feet. No maculopapular rash. 3 cm abrasion over the left medial malleolus. No subcutaneous emphysema. No fluctuance no induration. Surrounding erythremia that extended to the distal left lower extremity with warmth and tenderness. NEURO: Patient was alert, awake, orientated x3.No facial droop. Gait observed and normal with no ataxia.Speech had regular rate and rhythm. No focal neurological deficits. Result Diagram: 10/10/18203910/10/182039 Results 24 hrs Laboratory Tests Test 10/10/18 20:40 White Blood Count 7.4 10^3/ul Red Blood Count 4.05 10^6/ul Hemoglobin 11.5 g/dl Hematocrit 35.6 % Mean Corpuscular Volume 87.9 fl Mean Corpuscular Hemoglobin 28.4 pg Mean Corpuscular Hemoglobin Concent 32.3 g/dl Red Cell Distribution Width 14.5 % Platelet Count 206 10^3/UL Mean Platelet Volume 10.7 fl Immature Granulocytes % 0.300 % Neutrophils % 51.5 % Lymphocytes % 34.2 % Monocytes % 10.6 % Eosinophils % 2.6 % Basophils % 0.8 % Nucleated Red Blood Cells % 0.0 /100WBC Immature Granulocytes # 0.020 10^3/ul Neutrophils # 3.8 10^3/ul Lymphocytes # 2.5 10^3/ul Monocytes # 0.8 10^3/ul Eosinophils # 0.2 10^3/ul Basophils # 0.1 10^3/ul Nucleated Red Blood Cells # 0.0 10^3/ul Prothrombin Time 13.7 Sec Prothrombin Time Ratio 1.1 INR International Normalized Ratio 1.04 Activated Partial Thromboplast Time 31.9 Sec Urine Color YELLOW Urine Clarity CLEAR Urine pH 5.0 Urine Specific [place] 1.009 Urine Ketones NEGATIVE mg/dL Urine Nitrite NEGATIVE mg/dL Urine Bilirubin NEGATIVE mg/dL Urine Urobilinogen NEGATIVE mg/dL Urine Leukocyte Esterase NEGATIVE [place]/ul Urine Hemoglobin NEGATIVE mg/dL Urine Glucose NEGATIVE mg/dL Urine Total Protein NEGATIVE mg/dl Sodium Level 143 mmol/L Potassium Level 3.8 mmol/L Chloride Level 108 mmol/L Carbon Dioxide Level 27 mmol/L Anion Gap 8 Blood Urea Nitrogen 23 mg/dl Creatinine 1.36 mg/dl Est Glomerular Filtrat Rate mL/min mL/min Glucose Level 85 mg/dl Calcium Level 9.2 mg/dl Total Bilirubin 0.6 mg/dl Direct Bilirubin 0.00 mg/dl Indirect Bilirubin 0.6 mg/dl Aspartate Amino Transf (AST/SGOT) 20 IU/L Alanine Aminotransferase (ALT/SGPT) 15 IU/L Alkaline Phosphatase 73 IU/L Total Protein 7.8 g/dl Albumin 4.0 g/dl Globulin 3.80 g/dl Albumin/Globulin Ratio 1.05 Current Medications Medications Dose Sig/Kerri Start Time Status Last (Trade) Ordered Route PRN Stop Time Admin Dose Reason Admin Cefazolin 50 ml @ ONCE IVPB 10/10/18 DC 10/10/18 Sodium 100 mls/hr 21:00 10/10/18 20:59 21:29 Procedures/MDM The patient presented to the emergency department with a spreading erythematous superficial infection of the skin and subcutaneous tissues. My differential diagnosis included but was not limited to necrotizing fasciitis, lymphangitis, thrombophlebitis, deep vein thrombosis, allergic reaction, neoplasm, gout or abscess. Predisposing factors of the progressive spread of erythema, warmth, pain and tenderness was considered such as lymphedema, tinea pedis, open wounds, prior trauma or surgery, pre-existing skin lesion (furuncle), retained foreign body, injection drug use or vascular or immune compromise. The patient was placed on antibiotics to cover Staphylococcus aureus, including resistant strains such as community-acquired methicillin-resistant S. aureus. The patient received Ancef in the emergency department. She does have a history of diabetes. There is no evidence of stated above of any severe underlying infection such as sepsis or necrotizing fasciitis. There is no physical exam findings to suggest an abscess. I did obtain radiographic imaging and there was no ankle fracture but there was soft tissue swelling consistent with the patient's cellulitis. She had no leukocytosis. Blood glucose was within normal limits. She presented with her daughter who lives with her and helps her to attend her activities of daily living and they did feel comfortable being discharged with Bactrim and Keflex and follow-up with her primary care physician. The patient was discharged home in fair condition. They were instructed to return to the emergency department at any time if there was any worsening of their condition. The patient stated they would follow up with their PCP in the next 24-48 hours to initiate a suitable medication regimen under the care of their PCP as well as to allow their PCP to monitor any drug reactions. The patient was discharged home with prescriptions after they gave informed consent to the new medication. They were also fully informed by myself on the adverse effects and adverse drug interactions in order to provide adequate safeguards to prevent possible adverse reactions to medications. Departure Diagnosis: Primary Impression: Ankle sprain Encounter type: initial encounter Involved ligament of ankle: unspecified ligament Laterality: left Qualified Codes: S93.402A - Sprain of unspecified ligament of left ankle, initial encounter Additional Impression: Cellulitis Site of cellulitis: extremity Site of cellulitis of extremity: lower extre mity Laterality: left Qualified Codes: L03.116 - Cellulitis of left lower limb Condition: Fair Patient Instructions: Cellulitis QUENTIN UGLADE MD Oct 12, 2018 12:41
== END 2018-10-10 22:50 | disposition home or self-care (01) ==
LOC: E/R 17:53
DX: S93.402A Sprain of unspecified ligament of left ankle, initial encounter (principal); L03.116 Cellulitis of left lower limb; I12.9 Hypertensive chronic kidney disease with stage 1 through stage 4 chronic kidney disease, or unspecified chronic kidney disease; N18.9 Chronic kidney disease, unspecified; E11.22 Type 2 diabetes mellitus with diabetic chronic kidney disease; W01.0XXA Fall on same level from slipping, tripping and stumbling without subsequent striking against object, initial encounter; Y92.9 Unspecified place or not applicable; Z79.84 Long term (current) use of oral hypoglycemic drugs
CPT/HCPCS: 73590; 80053; 81003; 85025; 85610; 85730; 87086; 96365; J0690; Z7502; Z7610